=== PATIENT | female | born 1980 | race Caucasian/White ===

== ENCOUNTER 2019-10-10 18:27 | Emergency (ER) | payer SELFPAY ==
[2019-10-10 19:08] VITALS: BP 137/93; PULSE 95; RESP 16; TEMP 36.9; O2SAT 98; BMI 20.7
--- NOTE | 2019-10-10 20:30 | W.ED.EXTPRO ---
HPI - Extremity Problem General: Chief complaint: Extremity Injury, Lower Stated complaint: fall, knee pain Time Seen by Provider: 10/10/19 20:26 History of Present Illness: HPI Narrative: Patient was pulled on T post fell backwards and stood up and had some pain in her left knee with some swelling 20 is gone down now and patient is feeling better Complaint: extremity swelling and joint paint Onset (ago): hour(s) Pain Consistency: intermittent Location: left and knee Severity scale (1-10): 3 Quality: burning Associated symptoms: Deny chest pain, fever(s) or rash Review of Systems Const: Denies: fever, chills or body aches Eyes: Denies: change in vision or blurry vision ENMT: Denies: throat pain or nasal congestion Card: Denies: chest pain or shortness of breath on exertion Resp: Denies: shortness of breath, productive cough or non-productive cough GI: Denies: abdominal pain, nausea or vomiting Musc: Reports: extremity pain and joint pain (Left knee) Skin/Breast: Denies: rash Neuro: Denies: headache Psych: Denies: anxiety or depression Denis/Lymph: Denies: easy bruising PFSH ED PFSH: Statuses (acute, chronic, etc) shown below reflect problem list status as previously entered and may not be historically accurate Social History Smoking and tobacco status: current every day smoker Physical Exam Const: COMMON NORMALS: no apparent distress, average body habitus and oriented x3 HENMT: COMMON NORMALS: normocephalic HEAD & SCALP: normal to inspection and normocephalic FACE & SINUS: normal facial exam Eye: COMMON NORMALS: conjunctivae normal GENERAL EYE: normal appearance of both eyes CONJUNCTIVA: Yes conjunctivae normal Neck/C-Spine: COMMON NORMALS: no JVD Chest: COMMONS NORMALS: inspection of chest normal Resp: COMMON NORMALS: normal respiratory effort and clear to auscultation bilaterally AUSCULTATION: clear to auscultation bilaterally Cardio: COMMON NORMALS: no JVD, regular rate and regular rhythm RATE: regular rate RHYTHM: regular rhythm GI: COMMON NORMALS: normal to inspection, nondistended, normoactive bowel sounds Extremity: COMMON NORMALS: normal to inspection and full ROM LEFT LOWER EXTREMITY: Yes knee joint (Patient has mild swelling to medial joint line is positive for pain for the meniscus medial aspect) EXTREMITY IMAGE (FRONT): 1. Neuro: COMMON NORMALS: oriented x3 Course Vital Signs: Vital signs: Vital Signs Temperature 98.4 F 10/10/19 19:08 Pulse Rate 95 10/10/19 19:08 Respiratory Rate 16 10/10/19 19:08 Blood Pressure 137/93 10/10/19 19:08 Pulse Oximetry 98 10/10/19 19:08 Discharge Plan Discharge Patient Disposition: Home, Self-Care Clinical Impression: Knee sprain Qualifiers: Encounter type: initial encounter Involved ligament of knee: other ligament Laterality: left Qualified Code(s): S83.8X2A - Sprain of other specified parts of left knee, initial encounter Condition: Stable Prescriptions: No Action Synthroid 100 mcg Tablet 100 mcg PO DAILY RF: 0 Lexapro 5 mg 5 mg PO DAILY RF: 0 Discharge Orders: Discharge Order (Routine); Ordered 10/10/19 Ordered By: Ramses Mcgill Referrals: Dori Hook MD [Family Provider] - Discharge Diet: Usual diet Discharge Activity: Increase activity as tolerated Patient Instructions: Knee Pain (ED) Activity Restrictions/Additional Instructions: Follow-up with primary doctor if no significant provement. Consider meniscus sprain tear. Ice activity as tolerated. Can take NSAID for pain relief. Coding Level of Care Code ED Podiatry Teacher for Santy Rodriguez
[2019-10-10 21:07] VITALS: BP 134/71; PULSE 72; RESP 16; O2SAT 97
== END 2019-10-10 20:55 | disposition home or self-care (01) ==
PROVIDERS: Emergency Provider Nurse Practitioner Family; Family Provider Family Medicine
DX: S83.8X2A Sprain of other specified parts of left knee, initial encounter (principal); W19.XXXA Unspecified fall, initial encounter; F17.210 Nicotine dependence, cigarettes, uncomplicated
CPT/HCPCS: 99281

== ENCOUNTER 2019-12-27 17:15 | Emergency (ER) | payer SELFPAY ==
[2019-12-27 17:23] VITALS: BP 131/93; PULSE 71; RESP 18; TEMP 36.7; O2SAT 99; BMI 20.7
--- NOTE | 2019-12-27 17:25 | W.ED.EYEPROB ---
HPI - Eye Problem General: Chief complaint: Eye Problems Stated complaint: left eye pain Time Seen by Provider: 12/27/19 17:25 Source: patient Mode of arrival: ambulatory Limitations: no limitations History of Present Illness: HPI Narrative: Patient comes in today for complaints of injury to the left thigh. Patient was playing with her granddaughter and was struck in the eye by the child's finger. Patient reports injury occurred about 1030 this morning. Patient appears well. Patient appears in moderate pain. chief complaint: eye injury Review of Systems General: Reports: 10 or more systems reviewed and unremarkable except in HPI and below Eyes: Reports: eye discomfort and eye discharge [facility] ED PFSH: Surgical History History of hysterectomy (~2000) due to cancer History of tubal ligation Social History Smoking and tobacco status: current every day smoker Physical Exam Const: COMMON NORMALS: no apparent distress and oriented x3 GENERAL APPEARANCE: cooperative HENMT: COMMON NORMALS: normocephalic, external ears normal, EAC's normal, TM's normal bilaterally and external nose normal HEAD & SCALP: normal to inspection and normocephalic FACE & SINUS: normal facial exam NOSE: external nose normal GENERAL EAR: hearing not grossly impaired EXTERNAL EAR: Yes external ears normal EXTERNAL AUDITORY CANAL: EAC's normal TYMPANIC MEMBRANE: TM's normal bilaterally MOUTH: oral and palatal mucosa normal THROAT: posterior oropharynx normal Eye: COMMON NORMALS: PERRL and EOMs intact bilaterally CORNEA: Yes fluorescein used and other (5mm central abrasion to middle eye) PUPIL: Yes PERRL Neck/C-Spine: COMMON NORMALS: full ROM and no lymphadenopathy Lymph: LYMPHATIC: no lymphedema noted Chest: COMMONS NORMALS: inspection of chest normal and palpation of chest normal Resp: COMMON NORMALS: normal respiratory effort and clear to auscultation bilaterally AUSCULTATION: clear to auscultation bilaterally Cardio: COMMON NORMALS: regular rate and regular rhythm RATE: regular rate RHYTHM: regular rhythm GI: COMMON NORMALS: normal to inspection, nondistended, normoactive bowel sounds and non-tender : COMMON NORMALS: Yes no CVA tenderness BLADDER/KIDNEY EXAM: Yes no CVA tenderness Back/Pelvis: COMMON NORMALS: no CVA tenderness and thoracic and lumbar spine normal to inspection Extremity: COMMON NORMALS: normal to inspection GENERAL: No edema Neuro: COMMON NORMALS: oriented x3, moves all extremities and no focal motor deficits Psych: COMMON NORMALS: mental status grossly normal and cooperative Skin: COMMON NORMALS: no rashes or lesions noted GENERAL SKIN EXAM: no rashes or lesions noted Course Vital Signs: Vital signs: Vital Signs Temperature 98.1 F 12/27/19 17:23 Pulse Rate 76 12/27/19 17:34 Respiratory Rate 16 12/27/19 17:34 Blood Pressure 127/94 12/27/19 17:34 Pulse Oximetry 100 12/27/19 17:34 MDM - Eye Problem MDM Narrative: Medical decision making narrative: Patient comes in today for complaints of injury to the left eye. On exam we note tearing and redness to the eyelids of the left eye. Pupils are equal reactive. No obvious corneal laceration is noted to the left eye. Skin is warm and dry. Differential diagnosis includes corneal abrasion, conjunctivitis, allergic conjunctivitis, blepharitis. Under fluorescein stain note a 5 mm central abrasion to the left eye. Patient had relief with tetracaine. Post procedure antibiotic ophthalmic ointment was used to the eye. Patient was recommended to follow-up with eye career coordinator in no later than 3 days for reevaluation. Patient does have an appointment to see her eye career coordinator tomorrow. Patient reports understanding agreed to plan. Discharge Plan Discharge Patient Disposition: Home, Self-Care Clinical Impression: Corneal abrasion Qualifiers: Encounter type: initial encounter Laterality: left Qualified Code(s): S05.02XA - Injury of conjunctiva and corneal abrasion without foreign body, left eye, initial encounter Condition: Stable Prescriptions: New hydrocodone-acetaminophen 5-325 mg tablet 1 tab PO Q6H PRN (Reason: pain) Qty: 5 RF: 0 No Action cefdinir 300 mg capsule 300 mg PO BID Qty: 14 RF: 0 Ed A-Hist DM 4-10-10 mg tablet 1 tab PO Q6H PRN (Reason: allergy symptoms) Qty: 30 RF: 0 Synthroid 100 mcg Tablet 100 mcg PO DAILY RF: 0 Lexapro 5 mg 10 mg PO DAILY RF: 0 Discharge Orders: Discharge Order (Routine); Ordered 12/27/19 Ordered By: Jose Sales Referrals: Dori Hook MD [Family Provider] - Discharge Diet: Usual diet Discharge Activity: Increase activity as tolerated Patient Instructions: Corneal Abrasion (ED) Activity Restrictions/Additional Instructions: Protect eye from bright light Use antibiotic ointment three times a day for the next 5 days Follow-up with eye career coordinator in three days as needed Return to ER for worsening pain or high fever Coding Level of Care Code ED Furnace Tapper for Chg Fwd Exam Comprehensive
[2019-12-27] MEDS: fluorescein 1 mg Strip EYE-LEFT (17:33)
[2019-12-27] MEDS: neomycin-poly-dex Op oint 3.5 gm 1 APPLIC EYE-LEFT (17:33)
[2019-12-27] MEDS: eye irrigation 30 mL Btl EYE-LEFT (17:33)
[2019-12-27] MEDS: tetracaine 0.5% Op Soln 4 mL Btl 1 DROP EYE-LEFT (17:33)
[2019-12-27 17:34] VITALS: BP 127/94; PULSE 76; RESP 16; O2SAT 100
== END 2019-12-27 17:46 | disposition home or self-care (01) ==
LOC: ER 18:27
PROVIDERS: Emergency Provider Nurse Practitioner Family; Family Provider Family Medicine; PCP Family Medicine
DX: S05.02XA Injury of conjunctiva and corneal abrasion without foreign body, left eye, initial encounter (principal); H57.12 Ocular pain, left eye; W50.0XXA Accidental hit or strike by another person, initial encounter; F17.210 Nicotine dependence, cigarettes, uncomplicated
CPT/HCPCS: 12345; 99281; 99283

== ENCOUNTER 2021-02-28 10:59 | Emergency (ER) | payer SELFPAY ==
[2021-02-28 11:17] VITALS: BP 131/83; PULSE 84; RESP 17; TEMP 37.1; O2SAT 98; BMI 20.7
--- NOTE | 2021-02-28 14:03 | ECG_ITS ---
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 Measurements Intervals [place] Rate: 75 P: 17 SD: 158 QRS: -20 QRSD: 89 T: -4 QT: 357 QTc: 399 Interpretive Statements SINUS RHYTHM NONSPECIFIC T-WAVE ABNORMALITY No previous ECG available for comparison Electronically Signed On 02-28-2021 18:39:44 CDT by Jovan Garcia M.D. [id number]
--- NOTE | 2021-02-28 14:03 | XR_ITS ---
WS: [id number] Portable AP upright chest, 02/28/2021 Clinical Data: dyspnea/cough Comparison: PA and lateral chest, 11/03/2017. Findings: No nodules, masses or effusions are seen. The heart is normal. The pulmonary vascularity is not increased. No pneumonia or pneumothorax is seen. XR/XR chest 1V portable [id number] Impression: Negative chest.
--- NOTE | 2021-02-28 14:19 | W.ED.WEAKNES ---
HPI - Weakness General: Chief complaint: Weakness Stated complaint: H/A, RIGHT ARM PAIN, CP YESTERDAY Time Seen by Provider: 02/28/21 14:14 History of Present Illness: HPI Narrative: Patient complains about headache right arm feels heavier. Said she had some chest pain earlier today although triage she said it was yesterday but now she denies it was yesterday. Is not having chest pain. No shortness of breath no diaphoresis no nausea and vomiting. Complaint: lack of energy Onset (ago): hour(s) Duration: constant Location: RUE Migration: none Severity: mild Severity scale (1-10): 2 Quality: other (Right arm feels heavy) Relieving factors: none Exacerbating factors: none Associated symptoms: Reports chest pain (Did have some yesterday versus this morning.) and headache(s) (Has improved ); Denies chills, easy bruising, fever(s), nausea or vomiting Review of Systems Const: Denies: fever(s), chills or body aches Eyes: Denies: change in vision or blurry vision ENMT: Denies: throat pain or nasal congestion Card: Reports: chest pain (Did have some yesterday versus this morning.); Denies: dyspnea on exertion Resp: Denies: dyspnea, productive cough or non-productive cough GI: Denies: abdominal pain, nausea or vomiting Musc: Denies: extremity pain Skin/Breast: Denies: rash Neuro: Reports: headache(s) (Has improved ) and weakness in extremities (Feels heavy week) Psych: Denies: anxiety or depression Denis/Lymph: Denies: easy bruising PFSH ED PFSH: Surgical History History of hysterectomy (~2000) due to cancer History of tubal ligation Family History Other Heart disease Social History Smoking and tobacco status: current every day smoker Physical Exam Const: COMMON NORMALS: no acute distress, average body habitus and patient oriented x3 HENMT: COMMON NORMALS: normocephalic HEAD & SCALP: normal to inspection and normocephalic FACE & SINUS: normal facial exam Eye: COMMON NORMALS: conjunctivae normal GENERAL EYE: appearance normal, both eyes and all related structures CONJUNCTIVA: Yes conjunctivae normal Neck/C-Spine: COMMON NORMALS: no JVD Chest: COMMONS NORMALS: normal inspection of the chest Resp: COMMON NORMALS: normal respiratory effort and clear to auscultation bilaterally AUSCULTATION: clear to auscultation bilaterally Cardio: COMMON NORMALS: no JVD, regular rate and regular rhythm RATE: regular rate RHYTHM: regular rhythm GI: COMMON NORMALS: Normal to inspection, nondistended, normoactive bowel sounds present Extremity: COMMON NORMALS: normal to inspection and full ROM Neuro: COMMON NORMALS: patient oriented x3, CN's II-XII intact bilaterally, moves all extremities, no focal motor deficits and no sensory deficits noted Course Vital Signs: Vital signs: Vital Signs Temperature 98.7 F 02/28/21 11:17 Pulse Rate 71 02/28/21 14:49 Respiratory Rate 16 02/28/21 14:49 Blood Pressure 133/80 02/28/21 14:49 Pulse Oximetry 97 02/28/21 14:49 MDM - Weakness MDM Narrative: Medical decision making narrative: Patient has arm heaviness almost feeling kind of numb. Patient woke up with this she said she had had chest pain yesterday but then she said here in the visit that it was this morning but she is not had any since then. She had a just feels heavy to move her arm with the fingertips tingling at times. Labs x-ray EKG negative we will treat for cervical radiculopathy type symptom patient is a follow-up with primary care provider here in the next few days. Lab Data: Labs: Lab Results 02/28/21 02/28/21 02/28/21 Range/Units 14:44 14:44 14:44 WBC 9.8 (4.0-10.0) 10^3/ uL RBC 3.79 L (4.1-5.3) 10^6/u L Hgb 12.9 (11.5-15.3) g/dL Hct 38.7 (37.0-47.0) % MCV 102.1 H (81-99) fL MCH 34.0 (28.0-34.0) pg MCHC 33.3 (30.0-36.0) g/dL RDW 14.1 (12.1-15.1) % Plt Count 305 (130-400) 10^3/c mm MPV 9.6 (7.4-10.4) fL Neut % (Auto) 59.6 % Lymph % (Auto) 36.0 % [place] % (Auto) 2.8 % Eos % (Auto) 0.6 % Baso % (Auto) 0.8 % Neut # (Auto) 5.84 (1.8-7.7) 10^3/u L Lymph # (Auto) 3.5 (0.8-4.8) 10^3/u L [place] # (Auto) 0.3 (0.2-0.9) 10^3/u L Eos # (Auto) 0.1 (0.0-0.8) 10^3/u L Baso # (Auto) 0.1 (0.0-0.1) 10^3/u L Nucleated RBC % (a uto) 0 % Nucleated RBCs # 0.0 /100WBC Sodium 138 (136-145) mmol/L Potassium 4.2 (3.5-5.1) mmol/L Chloride 105 (98-107) mmol/L Carbon Dioxide 20 L (22-29) mmol/L Anion Gap 17.2 (5-19) BUN 5 L (6-20) mg/dL Creatinine 0.5 (0.5-0.9) mg/dL GFR Calculation 135.3 H (90-130) mL/min Glucose 82 (65-115) mg/dL Calculated Osmolal ity 282 L (285-295) mOsm/k g Calcium 8.3 L (8.5-10.5) mg/dL Total Bilirubin 0.2 (0.15-1.2) mg/dL AST 12 (0-32) U/L ALT < 5 (0-33) U/L Alkaline Phosphata se 57 (35-105) IU/L Troponin T Gen 5 n g/L 6 (0-10) ng/L Total Protein 7.3 (6.6-8.7) g/dL Albumin 4.3 (3.5-5.2) g/dL Globulin 3.0 (1.3-4.6) g/dL EKG Data^: EKG 1: EKG interpretation date: 02/28/21 EKG interpretation time: 14:40 Computer generated interpretation: Ventricular rate 75 bpm NE interval 158 ms QRS duration 89 ms QT is 350 7 ms sinus rhythm Discharge Plan Discharge Patient Disposition: Home Clinical Impression: Arm heaviness Condition: Stable Prescriptions: New prednisone 20 mg tablet 20 mg PO DAILY Qty: 7 RF: 0 No Action Benadryl 50 mg Capsule 50 mg PO Q6H PRN (Reason: Allergy Symptoms) RF: 0 ibuprofen 200 mg Tablet 200 - 400 mg PO Q6H PRN (Reason: Pain) RF: 0 Discharge Orders: Discharge ED (Routine); Ordered 02/28/21 Ordered By: Vinod Mcgill Referrals: Dori Hook MD [Primary Care Provider] - Discharge Diet: Usual diet Discharge Activity: Resume usual activity Patient Instructions: Cervical Radiculopathy (ED) Activity Restrictions/Additional Instructions: Follow-up with medical provider as directed. Take medications as prescribed. Return to the ER or your medical provider if condition worsens. Please read and understand discharge instructions. If any questions ask please. Apply moist heat to the neck. See about visit with a chiropractor. Follow-up your family medical provider if no significant improvement. Coding Level of Care Code ED Chief Substation Operator for Gamalg Fwd Exam Comprehensive
[2021-02-28 14:49] VITALS: BP 133/80; PULSE 71; RESP 16; O2SAT 97
[2021-02-28 14:54] LABS: Basophils # 0.1 10^3/uL (0.0-0.1); Basophils % 0.8 %; Eosinophils # 0.1 10^3/uL (0.0-0.8); Eosinophils % 0.6 %; Hematocrit 38.7 % (37.0-47.0); Hemoglobin 12.9 g/dL (11.5-15.3); Lymphocytes # 3.5 10^3/uL (0.8-4.8); Mean Corpuscular HGB Conc 33.3 g/dL (30.0-36.0); Mean Corpuscular Volume 102.1 fL (81-99); Mean Platelet Volume 9.6 fL (7.4-10.4); Monocytes # 0.3 10^3/uL (0.2-0.9); Monocytes % 2.8 %; Neutrophils # 5.84 10^3/uL (1.8-7.7); Neutrophils % 59.6 %; Nucleated Red Blood Cells % 0 %; Platelet Count 305 10^3/cmm (130-400); Red Blood Count 3.79 10^6/uL (4.1-5.3); Red Cell Distribution Width 14.1 % (12.1-15.1); White Blood Count 9.8 10^3/uL (4.0-10.0)
[2021-02-28 15:29] LABS: Alanine Aminotransferase < 5 U/L (0-33); Albumin Level 4.3 g/dL (3.5-5.2); Alkaline Phosphatase 57 IU/L (35-105); Blood Urea Nitrogen 5 mg/dL (6-20); Calcium 8.3 mg/dL (8.5-10.5); Carbon Dioxide 20 mmol/L (22-29); Chloride 105 mmol/L (98-107); Glomerular Filtration Rate 135.3 mL/min (90-130); Glucose 82 mg/dL (65-115); Osmolality Calculated 282 mOsm/kg (285-295); Sodium 138 mmol/L (136-145); Total Bilirubin 0.2 mg/dL (0.15-1.2); Total Protein 7.3 g/dL (6.6-8.7)
[2021-02-28 15:30] LABS: Anion Gap 17.2 (5-19); Potassium 4.2 mmol/L (3.5-5.1)
[2021-02-28 15:31] LABS: Aspartate Amino Transferase 12 U/L (0-32)
[2021-02-28 15:38] LABS: Troponin T (5th) Once 6 ng/L (0-10)
[2021-02-28 15:52] LABS: Add Urine Microscopic? NO; Charge for UA Resulting for Rev
[2021-02-28 16:05] VITALS: RESP 18
[2021-02-28 16:19] LABS: Bilirubin Urine Neg (Negative); Blood Urine Neg (Negative); Glucose Urine UA Norm (Normal); Ketones Urine Negative (Negative); Leukocyte Esterase Urine Negative (Negative); Nitrate Urine Negative (Negative); Protein Urine Neg (Negative); Specific Gravity, Urine 1.005 (1.005-1.030); Urine Appearance Clear (CLEAR); Urine Color Yellow (Yellow); Urobilinogen Urine Norm (Negative); pH Urine 7 (5-7)
== END 2021-02-28 16:06 | disposition home or self-care (01) ==
PROVIDERS: Family Medicine; Emergency Provider Nurse Practitioner Family; PCP Family Medicine
DX: R53.1 Weakness (principal); Z85.9 Personal history of malignant neoplasm, unspecified; F17.210 Nicotine dependence, cigarettes, uncomplicated
CPT/HCPCS: 71045; 80053; 81003; 84484; 85025; 93005; 99283

== ENCOUNTER 2022-06-12 11:43 | Emergency (ER) | payer SELFPAY ==
[2022-06-12] VITALS (7 sets, daily range): BP systolic 118–143; BP diastolic 80–101; PULSE 61–87; RESP 15–18; TEMP 36.9; O2SAT 95–99
--- NOTE | 2022-06-12 11:53 | ECG_ITS ---
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 Measurements Intervals [place] Rate: 87 P: 69 NM: 152 QRS: 120 QRSD: 88 T: -73 QT: 352 QTc: 425 Interpretive Statements SINUS RHYTHM POSSIBLE RIGHT VENTRICULAR HYPERTROPHY [SOME/ALL OF: PROMINENT R IN V1, LATE TRANSITION, RAD, CARLA, SSS] ST DEVIATION AND MODERATE T-WAVE ABNORMALITY, CONSIDER ANTEROLATERAL ISCHEMIA [-0.1+ mV T-WAVE IN V3-V6] ST DEVIATION AND MODERATE T-WAVE ABNORMALITY, CONSIDER INFERIOR ISCHEMIA [-0.1+ mV T-WAVE IN II/aVF] Compared to ECG 02/28/2021 14:37:08 Atrial abnormality now present Possible ischemia now present T-wave abnormality still present Electronically Signed On 06-12-2022 16:21:33 CDT by Jovan Garcia M.D. [id number]
--- NOTE | 2022-06-12 12:18 | W.ED.CHESTPA ---
HPI - Chest Pain General: Chief Complaint: Chest Pain Stated Complaint: chest pain Time Seen by Provider: 06/12/22 12:08 Source: patient Mode of arrival: ambulatory Limitations: no limitations History of Present Illness: 42-year-old female states that she had COVID 2 weeks ago states that since then she has been having increasing chest pains states pains been sharp throughout her whole chest states they have been constant for 2 weeks but have worsened over the last week states her pain is currently a 7 out of 10 she denies any worsening improving factors denies any cough recently denies any vomiting or diarrhea Associated symptoms: Deny abdominal pain, dyspnea, fever(s), nausea or vomiting Review of Systems Const: Denies: fever(s), chills, body aches or change in appetite Eyes: Denies: blurry vision or eye discomfort ENMT: Denies: throat pain or dental pain Card: Reports: chest pain Resp: Denies: dyspnea GI: Denies: abdominal pain, nausea, vomiting or diarrhea : Denies: dysuria Musc: Denies: neck pain or back pain Skin/Breast: Denies: rash Neuro: Denies: headache(s) Psych: Denies: depression Denis/Lymph: Denies: easy bruising All/Imm: Denies: urticaria PFSH ED PFSH: Surgical History History of hysterectomy (~2000) due to cancer History of tubal ligation Family History Other Heart disease Social History Smoking and tobacco status: current every day smoker Physical Exam Const: COMMON NORMALS: no acute distress, patient oriented x3 and healthy appearing HENMT: COMMON NORMALS: normocephalic and atraumatic HEAD & SCALP: normocephalic and atraumatic Eye: COMMON NORMALS: Equal, round and reactive pupils present and EOMs intact bilaterally PUPIL: Yes Equal, round and reactive pupils present Neck/C-Spine: COMMON NORMALS: full ROM and supple Chest: COMMONS NORMALS: normal inspection of the chest and normal palpation of entire chest wall Resp: COMMON NORMALS: normal respiratory effort, No retractions, No use of accessory muscles and clear to auscultation bilaterally AUSCULTATION: clear to auscultation bilaterally Cardio: COMMON NORMALS: regular rate, regular rhythm and No murmurs present (Cardio) RATE: regular rate RHYTHM: regular rhythm GI: COMMON NORMALS: Normal to inspection, nondistended, normoactive bowel sounds present, Soft to palpation, non-tender and no masses PALPATION: Yes Soft to palpation Extremity: COMMON NORMALS: normal to inspection and full ROM Neuro: COMMON NORMALS: patient oriented x3, moves all extremities and no focal motor deficits Psych: COMMON NORMALS: mental status grossly normal, Normal thought process present and cooperative THOUGHT PROCESS: Normal thought process present Skin: COMMON NORMALS: no rashes or lesions noted and no wounds GENERAL SKIN EXAM: no rashes or lesions noted Course Vital Signs: Vital signs: Vital Signs Temperature 98.5 F 06/12/22 11:49 Pulse Rate 81 06/12/22 12:46 Respiratory Rate 16 06/12/22 12:46 Blood Pressure 118/86 06/12/22 12:46 Pulse Oximetry 99 06/12/22 12:46 Oxygen Delivery Me thod 06/12/22 12:46 MDM - Chest Pain Medical Decision Making Patient presents here with chest pains atypical in nature been going on for weeks. Her initial repeat troponin here negative her D-dimer is negative as well she has no signs of acute coronary syndrome we will get her cardiology follow-up for her pain she is stable for discharge. Lab Data : 06/12/22 12:30 06/12/22 12:30 Laboratory Results WBC 8.3 10^3/uL (4.0-10.0) 06/12/22 12:30 RBC 4.01 10^6/uL (4.1-5.3) L 06/12/22 12:30 Hgb 13.3 g/dL (11.5-15.3) 06/12/22 12:30 Hct 40.3 % (37.0-47.0) 06/12/22 12:30 MCV 100.5 fl (81-99) H 06/12/22 12:30 MCH 33.2 pg (28.0-34.0) 06/12/22 12:30 MCHC 33.0 g/dL (30.0-36.0) 06/12/22 12:30 RDW 13.2 % (12.1-15.1) 06/12/22 12:30 Plt Count 403 10^3/cmm (130-400) H 06/12/22 12:30 MPV 9.6 fL (7.4-10.4) 06/12/22 12:30 Neut % (Auto) 55.2 % 06/12/22 12:30 Lymph % (Auto) 38.1 % 06/12/22 12:30 [place] % (Auto) 4.8 % 06/12/22 12:30 Eos % (Auto) 1.0 % 06/12/22 12:30 Baso % (Auto) 0.5 % 06/12/22 12:30 Neut # (Auto) 4.61 10^3/uL (1.8-7.7) 06/12/22 12: Lymph # (Auto) 3.2 10^3/uL (0.8-4.8) 06/12/22 12:30 [place] # (Auto) 0.4 10^3/uL (0.2-0.9) 06/12/22 12:30 Eos # (Auto) 0.1 10^3/uL (0.0-0.8) 06/12/22 12:30 Baso # (Auto) 0.0 10^3/uL (0.0-0.1) 06/12/22 12:30 Nucleated RBC % (auto) 0 % 06/12/22 12: Nucleated RBCs # 0.0 /100WBC 06/12/22 12:30 PT 12.90 SECONDS (12.1-14.9) 06/12/22 12:30 INR 0.94 (0.8-1.2) 06/12/22 12:30 D-Dimer 0.31 ug/mIFEU (0-0.59) 06/12/22 12:30 Sodium 138 mmol/L (136-145) 06/12/22 12:30 Potassium 3.6 mmol/L (3.5-5.1) 06/12/22 12:30 Chloride 101 mmol/L (98-107) 06/12/22 12:30 Carbon Dioxide 22 mmol/L (22-29) 06/12/22 12:30 Anion Gap 18.6 (5-19) 06/12/22 12:30 BUN 6 mg/dL (6-20) 06/12/22 12:30 Creatinine 0.5 mg/dL (0.5-0.9) 06/12/22 12:30 GFR Calculation 134.0 mL/min (90-130) H 06/12/22 12:30 Glucose 83 mg/dL (65-115) 06/12/22 12:30 Calculated Osmolality 283 mOsm/kg (285-295) L 06/12/22 12:30 Calcium 9.0 mg/dL (8.5-10.5) 06/12/22 12:30 Total Bilirubin 0.4 mg/dL (0.15-1.2) 06/12/22 12:30 AST 15 U/L (0-32) 06/12/22 12:30 ALT < 5 U/L (0-33) 06/12/22 12:30 Alkaline Phosphatase 67 U/L (35-105) 06/12/22 12:30 Troponin T Baseline 6 ng/L (0-10) 06/12/22 12:30 Troponin T 120 Minute 6.00 ng/L (0-10) 06/12/22 13:49 Total Protein 7.2 g/dL (6.6-8.7) 06/12/22 12:30 Albumin 4.5 g/dL (3.5-5.2) 06/12/22 12:30 Globulin 2.7 g/dL (1.3-4.6) 06/12/22 12:30 EKG Data EKG 1: I personally reviewed and interpreted this EKG as follows: EKG interpretation date: 06/12/22 EKG interpretation time: 11:53 Interpretation: nsr hr 87 st depression noted no elevation qrs 88 qtc 397 EKG 2: I personally reviewed and interpreted this EKG as follows: EKG interpretation date: 06/12/22 EKG interpretation time: 13:51 Interpretation: nsr hr [address] or t wave abnormalities qrs 96 qtc 397 Discharge Plan Discharge Patient Disposition: Home Clinical Impression: Chest pain Condition: Stable Prescriptions: No Action diphenhydramine HCl [Benadryl] 50 mg Capsule 50 mg PO Q6H PRN (Reason: Allergy Symptoms) ibuprofen 200 mg Tablet 200 - 400 mg PO Q6H PRN (Reason: Pain) Tylenol 325 mg Capsule 325 mg PO QID PRN (Reason: Pain) Discharge Orders: Discharge ED (Routine); Ordered 06/12/22 Ordered By: Anthony Duran Referrals: Miladis Lloyd MD [Physician] - 1-3 days Dori Hook MD [Primary Care Provider] - Discharge Diet: Advance as tolerated Discharge Activity: Resume usual activity Patient Instructions: Chest Pain (ED) Coding Level of Care Code ED Ethylbenzene Converter Helper for Chg Fwd Exam Comprehensive
[2022-06-12] MEDS: aspirin 81 mg Chew Tablet 324 MG PO (12:41)
[2022-06-12] MEDS: HYDROmorphone 1 mg/mL INJ 1 mL 0.5 MG IVP (12:41)
[2022-06-12] MEDS: ondansetron 2 mg/ML SDV 2 mL 4 MG IVP (12:41)
[2022-06-12 13:18] LABS: Basophils % 0.5 %; Eosinophils # 0.1 10^3/uL (0.0-0.8); Hematocrit 40.3 % (37.0-47.0); Hemoglobin 13.3 g/dL (11.5-15.3); Lymphocytes # 3.2 10^3/uL (0.8-4.8); Lymphocytes % 38.1 %; Mean Corpuscular Hemoglobin 33.2 pg (28.0-34.0); Mean Corpuscular Volume 100.5 fl (81-99); Mean Platelet Volume 9.6 fL (7.4-10.4); Monocytes # 0.4 10^3/uL (0.2-0.9); Monocytes % 4.8 %; Neutrophils # 4.61 10^3/uL (1.8-7.7); Neutrophils % 55.2 %; Nucleated Red Blood Cells % 0 %; Platelet Count 403 10^3/cmm (130-400); Red Blood Count 4.01 10^6/uL (4.1-5.3); Red Cell Distribution Width 13.2 % (12.1-15.1); White Blood Count 8.3 10^3/uL (4.0-10.0)
[2022-06-12 13:19] LABS: INR 0.94 (0.8-1.2)
[2022-06-12 13:21] LABS: D Dimer 0.31 ug/mIFEU (0-0.59)
[2022-06-12 13:24] LABS: Troponin(5th) Baseline 6 ng/L (0-10)
[2022-06-12 13:38] LABS: Alanine Aminotransferase < 5 U/L (0-33); Albumin Level 4.5 g/dL (3.5-5.2); Alkaline Phosphatase 67 U/L (35-105); Anion Gap 18.6 (5-19); Aspartate Amino Transferase 15 U/L (0-32); Blood Urea Nitrogen 6 mg/dL (6-20); Carbon Dioxide 22 mmol/L (22-29); Chloride 101 mmol/L (98-107); Globulin 2.7 g/dL (1.3-4.6); Glucose 83 mg/dL (65-115); Osmolality Calculated 283 mOsm/kg (285-295); Potassium 3.6 mmol/L (3.5-5.1); Sodium 138 mmol/L (136-145); Total Bilirubin 0.4 mg/dL (0.15-1.2); Total Protein 7.2 g/dL (6.6-8.7)
--- NOTE | 2022-06-12 13:51 | ECG_ITS ---
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 Measurements Intervals [place] Rate: 63 P: 59 [place]: 162 QRS: 95 QRSD: 96 T: -22 QT: 390 QTc: 400 Interpretive Statements SINUS RHYTHM BORDERLINE RIGHT AXIS DEVIATION [QRS AXIS > 90] ST DEVIATION AND MODERATE T-WAVE ABNORMALITY, CONSIDER ANTERIOR ISCHEMIA [-0.1+ mV T-WAVE IN V3/V4] Compared to ECG 06/12/2022 11:53:37 Atrial abnormality no longer present T-wave abnormality still present Possible ischemia still present Electronically Signed On 06-12-2022 16:22:46 CDT by Jovan Garcia M.D. [email or web address]. [email or web address] memorial hospitalMaples ESM Technologiesblanchard valley [facility].Sevcon/store/OM/[id number]
--- NOTE | 2022-06-12 14:33 | PC.NURSE ---
PT PLACED ON CONTINUOS NIBP, SPO2, AND CM
[2022-06-12 15:34] LABS: Troponin 5 2HR Delta 0 ABS# (0-10)
[2022-06-12] MEDS: HYDROcodone-acetaminophen 5-325 mg Tablet 1 TAB PO (15:37)
--- NOTE | 2022-06-13 10:09 | DCPLANNER ---
Addendum entered by Bertha Sanchez 09/17/22 11:53: Patient had a follow up appointment scheduled with heart care - patient did attend appointment Addendum entered by Bertha Sanchez 06/13/22 15:01: Patient has a follow up appointment scheduled for , August 28, 2022 at 10:[address] Lloyd at [facility]. Clinic will call patient with appointment information. Original Note: onsite case manager had message to schedule a follow up appointment for patient with cardiology. onsite case manager sent patients information to the front office staff at [facility]. Patients information will be printed and reviewed. Clinic will call patient with appointment information.
== END 2022-06-12 15:20 | disposition home or self-care (01) ==
PROVIDERS: Emergency Provider Emergency Medicine; PCP Family Medicine
DX: R07.9 Chest pain, unspecified (principal)
CPT/HCPCS: 36415; 80053; 84484; 85025; 85378; 85610; 93005; 96374; 96375; 99285; J1170; J2405

== ENCOUNTER 2022-06-25 21:52 | Emergency (ER) | payer SELFPAY ==
[2022-06-25 22:06] VITALS: BMI 18.8
[2022-06-25 22:13] VITALS: BP 136/80; PULSE 90; RESP 15; TEMP 36.7; O2SAT 99
--- NOTE | 2022-06-25 22:18 | ECG_ITS ---
[facility] Test Date: 2022-06-25 Pat Name: Celina Reagan Department: Room: Gender: Female Wolf Hunter: : 1980 Requested By: Anthony Duran Order Number: [id number] Lenard MD: Jovan Garcia M.D. Measurements Intervals [place] Rate: 93 P: 57 [place]: 149 QRS: 93 QRSD: 79 T: -48 QT: 310 QTc: 387 Interpretive Statements SINUS RHYTHM BORDERLINE RIGHT AXIS DEVIATION [QRS AXIS > 90] SEPTAL MYOCARDIAL INFARCTION , PROBABLY OLD [40+ ms Q WAVE IN V1/V2] MODERATE T-WAVE ABNORMALITY, CONSIDER ANTEROLATERAL ISCHEMIA [-0.1+ mV T-WAVE IN V3-V6] MODERATE T-WAVE ABNORMALITY, CONSIDER INFERIOR ISCHEMIA [-0.1+ mV T-WAVE IN II/aVF] Compared to ECG 06/12/2022 13:51:48 Myocardial infarct finding now present T-wave abnormality still present Possible ischemia still present Electronically Signed On 06-26-2022 8:54:38 CDT by Jovan Garcia M.D. [email or web address].Z[employer] Imagingei Technologieszanesville city hospital.Aprovecha.com/store/[id number] justyna
--- NOTE | 2022-06-25 22:21 | XRR_ITS ---
PROCEDURE INFORMATION: Exam: XR Chest Exam date and time: 06/25/2022 10:29 PM Age: 42 years old Clinical indication: Chest pressure and chest wall pain; Additional info: Cp TECHNIQUE: Imaging protocol: Radiologic exam of the chest. Views: 1 view. COMPARISON: CR XR chest 1V portable [id number] 02/28/2021 2:22 PM FINDINGS: Lungs: No consolidation. Pleural spaces: No pleural effusion. No pneumothorax. Heart/Mediastinum: No cardiomegaly. Bones/joints: Unremarkable. XR/XR chest 1V portable [id number] IMPRESSION: 1. No acute abnormality demonstrated. 2. There is no interval change from the prior examination.
--- NOTE | 2022-06-25 22:30 | W.ED.CHESTPA ---
HPI - Chest Pain General: Chief Complaint: Chest Pain Stated Complaint: cp Time Seen by Provider: 06/25/22 22:26 Source: patient Mode of arrival: ambulatory Limitations: no limitations History of Present Illness: 42-year-old female states she been having intermittent chest pain over the last 3 weeks patient's been seen here along with [facility] had normal work-ups. States that today started having pain for 5 hours ago states that sharp pain in the center of her chest also having a slight headache. She denies any shortness of breath denies any nausea denies any diaphoresis. States her pain is currently a 5 out of 10. She denies any worsening improving factors. Associated symptoms: Deny abdominal pain, dyspnea, fever(s), nausea or vomiting Review of Systems Const: Denies: fever(s), chills, body aches or change in appetite Eyes: Denies: blurry vision or eye discomfort ENMT: Denies: throat pain or dental pain Card: Reports: chest pain Resp: Denies: dyspnea GI: Denies: abdominal pain, nausea, vomiting or diarrhea : Denies: dysuria Musc: Denies: neck pain or back pain Skin/Breast: Denies: rash Neuro: Denies: headache(s) Psych: Denies: depression Denis/Lymph: Denies: easy bruising All/Imm: Denies: urticaria PFSH ED PFSH: Surgical History History of hysterectomy (~2000) due to cancer History of tubal ligation Family History Other Heart disease Social History Smoking and tobacco status: current every day smoker Course Vital Signs: Vital signs: Vital Signs Temperature 98.0 F 06/25/22 22:13 Pulse Rate 68 06/25/22 22:43 Respiratory Rate 16 06/25/22 22:43 Blood Pressure 104/67 06/25/22 22:43 Pulse Oximetry 98 06/25/22 22:43 Oxygen Delivery Me thod 06/25/22 22:13 MDM - Chest Pain Medical Decision Making Patient presents here with chest pain is atypical in nature she is well-appearing here troponins are normal we will get her follow-up with cardiology she is to return if worsening she understands agrees to plan. Lab Data : 06/25/22 22:42 06/25/22 22:42 Radiology Impressions Chest X-Ray 06/25/22 22: IMPRESSION: 1. No acute abnormality demonstrated. 2. There is no interval change from the prior examination. Laboratory Results WBC 12.5 10^3/uL (4.0-10.0) H 06/25/22 22:42 RBC 3.71 10^6/uL (4.1-5.3) L 06/25/22 22:42 Hgb 12.5 g/dL (11.5-15.3) 06/25/22 22:42 Hct 37.9 % (37.0-47.0) 06/25/22 22:42 MCV 102.2 fl (81-99) H 06/25/22 22:42 MCH 33.7 pg (28.0-34.0) 06/25/22 22: MCHC 33.0 g/dL (30.0-36.0) 06/25/22 22:42 RDW 13.5 % (12.1-15.1) 06/25/22 22:42 Plt Count 414 10^3/cmm (130-400) H 06/25/22 22:42 MPV 9.0 fL (7.4-10.4) 06/25/22 22:42 Neut % (Auto) 67.2 % 06/25/22 22:42 Lymph % (Auto) 26.3 % 06/25/22 22:42 [place] % (Auto) 4.9 % 06/25/22 22:42 Eos % (Auto) 0.7 % 06/25/22 22:42 Baso % (Auto) 0.6 % 06/25/22 22:42 Neut # (Auto) 8.35 10^3/uL (1.8-7.7) H 06/25/22 22:42 Lymph # (Auto) 3.3 10^3/uL (0.8-4.8) 06/25/22 22:42 [place] # (Auto) 0.6 10^3/uL (0.2-0.9) 06/25/22 22:42 Eos # (Auto) 0.1 10^3/uL (0.0-0.8) 06/25/22 22:42 Baso # (Auto) 0.1 10^3/uL (0.0-0.1) 06/25/22 22:42 Nucleated RBC % (auto) 0 % 06/25/22 22: Nucleated RBCs # 0.0 /100WBC 06/25/22 22:42 PT 12.20 SECONDS (12.1-14.9) 06/25/22 22:42 INR 0.88 (0.8-1.2) 06/25/22 22:42 Sodium 140 mmol/L (136-145) 06/25/22 22:42 Potassium 3.9 mmol/L (3.5-5.1) 06/25/22 22:42 Chloride 103 mmol/L (98-107) 06/25/22 22:42 Carbon Dioxide 25 mmol/L (22-29) 06/25/22 22:42 Anion Gap 15.9 (5-19) 06/25/22 22:42 BUN 6 mg/dL (6-20) 06/25/22 22:42 Creatinine 0.5 mg/dL (0.5-0.9) 06/25/22 22:42 GFR Calculation 134.0 mL/min (90-130) H 06/25/22 22:42 Glucose 98 mg/dL (65-115) 06/25/22 22:42 Calculated Osmolality 288 mOsm/kg (285-295) 06/25/22 22:42 Calcium 9.5 mg/dL (8.5-10.5) 06/25/22 22:42 Total Bilirubin 0.3 mg/dL (0.15-1.2) 06/25/22 22:42 AST 13 U/L (0-32) 06/25/22 22:42 ALT 6 U/L (0-33) 06/25/22 22:42 Alkaline Phosphatase 74 U/L (35-105) 06/25/22 22:42 Troponin T Baseline 6 ng/L (0-10) 06/25/22 22:42 Troponin T 120 Minute 6.00 ng/L (0-10) 06/26/22 00:22 Delta Troponin T 0 ABS# (0-10) 06/26/22 00:22 Total Protein 7.6 g/dL (6.6-8.7) 06/25/22 22:42 Albumin 4.7 g/dL (3.5-5.2) 06/25/22 22:42 Globulin 2.9 g/dL (1.3-4.6) 06/25/22 22:42 EKG Data EKG 1: I personally reviewed and interpreted this EKG as follows: EKG interpretation date: 06/25/22 EKG interpretation time: 22:28 Interpretation: nsr hr [address] or t wave abnormalities qrs 96 qtc 393 Discharge Plan Discharge Patient Disposition: Home Clinical Impression: Chest pain Condition: Stable Prescriptions: No Action diphenhydramine HCl [Benadryl] 50 mg Capsule 50 mg PO Q6H PRN (Reason: Allergy Symptoms) ibuprofen 200 mg Tablet 200 - 400 mg PO Q6H PRN (Reason: Pain) Tylenol 325 mg Capsule 325 mg PO QID PRN (Reason: Pain) Discharge Orders: Discharge ED (Routine); Ordered 06/26/22 Ordered By: Anthony Duran Referrals: Jerome Fajardo MD [Physician] - 1-3 days Dori Hook MD [Primary Care Provider] - Discharge Diet: Advance as tolerated Discharge Activity: Resume usual activity Patient Instructions: Chest Pain (ED) Coding Level of Care Code ED Allergist/Pediatric Pulmonologist for Santy Rodriguez
[2022-06-25 22:43] VITALS: BP 104/67; PULSE 68; RESP 16; O2SAT 98
[2022-06-25] MEDS: ondansetron 2 mg/ML SDV 2 mL 4 MG IVP (22:44)
[2022-06-25] MEDS: HYDROmorphone 1 mg/mL INJ 1 mL 0.5 MG IVP (22:44)
[2022-06-25 22:45] LABS: Basophils # 0.1 10^3/uL (0.0-0.1); Basophils % 0.6 %; Eosinophils # 0.1 10^3/uL (0.0-0.8); Eosinophils % 0.7 %; Hematocrit 37.9 % (37.0-47.0); Hemoglobin 12.5 g/dL (11.5-15.3); Lymphocytes # 3.3 10^3/uL (0.8-4.8); Lymphocytes % 26.3 %; Mean Corpuscular Hemoglobin 33.7 pg (28.0-34.0); Mean Corpuscular Volume 102.2 fl (81-99); Monocytes # 0.6 10^3/uL (0.2-0.9); Monocytes % 4.9 %; Neutrophils # 8.35 10^3/uL (1.8-7.7); Neutrophils % 67.2 %; Nucleated Red Blood Cells % 0 %; Platelet Count 414 10^3/cmm (130-400); Red Blood Count 3.71 10^6/uL (4.1-5.3); Red Cell Distribution Width 13.5 % (12.1-15.1); White Blood Count 12.5 10^3/uL (4.0-10.0)
[2022-06-25 23:04] LABS: Alanine Aminotransferase 6 U/L (0-33); Albumin Level 4.7 g/dL (3.5-5.2); Alkaline Phosphatase 74 U/L (35-105); Anion Gap 15.9 (5-19); Aspartate Amino Transferase 13 U/L (0-32); Blood Urea Nitrogen 6 mg/dL (6-20); Calcium 9.5 mg/dL (8.5-10.5); Carbon Dioxide 25 mmol/L (22-29); Chloride 103 mmol/L (98-107); Globulin 2.9 g/dL (1.3-4.6); Glucose 98 mg/dL (65-115); INR 0.88 (0.8-1.2); Osmolality Calculated 288 mOsm/kg (285-295); Potassium 3.9 mmol/L (3.5-5.1); Sodium 140 mmol/L (136-145); Total Bilirubin 0.3 mg/dL (0.15-1.2); Total Protein 7.6 g/dL (6.6-8.7)
[2022-06-25 23:05] LABS: Troponin(5th) Baseline 6 ng/L (0-10)
--- NOTE | 2022-06-26 00:24 | ECG_ITS ---
[facility] Test Date: 2022-06-26 Pat Name: Celina Reagan Department: Room: Gender: Female Reimbursement Coordinator: : 1980 Requested By: Anthony Duran Order Number: [id number] Lenard MD: Jerome Fajardo M.D. Measurements Intervals [place] Rate: 67 P: 42 [place]: 165 QRS: 79 QRSD: 93 T: 55 QT: 388 QTc: 410 Interpretive Statements SINUS RHYTHM LOW QRS VOLTAGE IN PRECORDIAL LEADS [QRS DEFLECTION < 1.0 mV IN CHEST LEADS] NONSPECIFIC T-WAVE ABNORMALITY Compared to ECG 06/25/2022 22:18:35 Low QRS voltage now present Myocardial infarct finding no longer present Possible ischemia no longer present T-wave abnormality still present Electronically Signed On 06-26-2022 20:40:31 CDT by Jerome Fajardo M.D. [email or web address].[facility].Lecturio/store/[id number]
[2022-06-26 01:12] LABS: Troponin 5 2HR Delta 0 ABS# (0-10)
[2022-06-26 01:45] VITALS: BP 105/62; PULSE 79; RESP 14; O2SAT 99
--- NOTE | 2022-06-26 09:15 | DCPLANNER ---
Addendum entered by Bertha Sanchez 09/26/22 14:06: Patient had a follow up appointment scheduled with heart care - patient did attend appointment. Addendum entered by Bertha Sanchez 06/26/22 11:26: Patient has a follow up appointment scheduled for , August 28, 2022 at 10:[address] Lloyd at [facility]. Clinic will call patient with appointment information. Original Note: manager quality improvement had message to schedule a follow up appointment for patient with cardiology. manager quality improvement sent patients information to the front office staff at [facility]. Patients information will be reviewed. Clinic will call patient with appointment information.
--- NOTE | 2022-07-12 02:12 | W.ED.CHESTPA ---
HPI - Chest Pain General: Chief Complaint: Chest Pain Stated Complaint: cp Time Seen by Provider: 06/25/22 22:26 Source: patient Mode of arrival: ambulatory Limitations: no limitations History of Present Illness: . PFSH ED PFSH: Surgical History History of hysterectomy (~2000) due to cancer History of tubal ligation Family History Other Heart disease Social History Smoking and tobacco status: current every day smoker Physical Exam Const: COMMON NORMALS: no acute distress, patient oriented x3 and healthy appearing HENMT: COMMON NORMALS: normocephalic and atraumatic HEAD & SCALP: normocephalic and atraumatic Eye: COMMON NORMALS: Equal, round and reactive pupils present and EOMs intact bilaterally PUPIL: Yes Equal, round and reactive pupils present Neck/C-Spine: COMMON NORMALS: full ROM and supple Chest: COMMONS NORMALS: normal inspection of the chest and normal palpation of entire chest wall Resp: COMMON NORMALS: normal respiratory effort, No retractions, No use of accessory muscles and clear to auscultation bilaterally AUSCULTATION: clear to auscultation bilaterally Cardio: COMMON NORMALS: regular rate, regular rhythm and No murmurs present (Cardio) RATE: regular rate RHYTHM: regular rhythm GI: COMMON NORMALS: Normal to inspection, nondistended, normoactive bowel sounds present, Soft to palpation, non-tender and no masses PALPATION: Yes Soft to palpation Extremity: COMMON NORMALS: normal to inspection and full ROM Neuro: COMMON NORMALS: patient oriented x3, moves all extremities and no focal motor deficits Psych: COMMON NORMALS: mental status grossly normal, Normal thought process present and cooperative THOUGHT PROCESS: Normal thought process present Skin: COMMON NORMALS: no rashes or lesions noted and no wounds GENERAL SKIN EXAM: no rashes or lesions noted Course Vital Signs: Vital signs: Vital Signs Temperature 98.0 F 06/25/22 22:13 Pulse Rate 79 06/26/22 01:45 Respiratory Rate 14 06/26/22 01:45 Blood Pressure 105/62 06/26/22 01:45 Pulse Oximetry 99 06/26/22 01:45 Oxygen Delivery Me thod 06/25/22 22:13 MDM - Chest Pain Medical Decision Making Addendum to note on 06/25 including physical exam Lab Data : 06/25/22 22:42 06/25/22 22:42 Radiology Impressions Chest X-Ray 06/25/22 22:21 IMPRESSION: 1. No acute abnormality demonstrated. 2. There is no interval change from the prior examination. Laboratory Results WBC 12.5 10^3/uL (4.0-10.0) H 06/25/22 22:42 RBC 3.71 10^6/uL (4.1-5.3) L 06/25/22 22:42 Hgb 12.5 g/dL (11.5-15.3) 06/25/22 22:42 Hct 37.9 % (37.0-47.0) 06/25/22 22:42 MCV 102.2 fl (81-99) H 06/25/22 22:42 MCH 33.7 pg (28.0-34.0) 06/25/22 22:42 MCHC 33.0 g/dL (30.0-36.0) 06/25/22 22:42 RDW 13.5 % (12.1-15.1) 06/25/22 22:42 Plt Count 414 10^3/cmm (130-400) H 06/25/22 22:42 MPV 9.0 fL (7.4-10.4) 06/25/22 22:42 Neut % (Auto) 67.2 % 06/25/22 22:42 Lymph % (Auto) 26.3 % 06/25/22 22:42 [place] % (Auto) 4.9 % 06/25/22 22:42 Eos % (Auto) 0.7 % 06/25/22 22:42 Baso % (Auto) 0.6 % 06/25/22 22:42 Neut # (Auto) 8.35 10^3/uL (1.8-7.7) H 06/25/22 22:42 Lymph # (Auto) 3.3 10^3/uL (0.8-4.8) 06/25/22 22:42 [place] # (Auto) 0.6 10^3/uL (0.2-0.9) 06/25/22 22:42 Eos # (Auto) 0.1 10^3/uL (0.0-0.8) 06/25/22 22:42 Baso # (Auto) 0.1 10^3/uL (0.0-0.1) 06/25/22 22:42 Nucleated RBC % (auto) 0 % 06/25/22 22:42 Nucleated RBCs # 0.0 /100WBC 06/25/22 22:42 PT 12.20 SECONDS (12.1-14.9) 06/25/22 22:42 INR 0.88 (0.8-1.2) 06/25/22 22:42 Sodium 140 mmol/L (136-145) 06/25/22 22:42 Potassium 3.9 mmol/L (3.5-5.1) 06/25/22 22:42 Chloride 103 mmol/L (98-107) 06/25/22 22:42 Carbon Dioxide 25 mmol/L (22-29) 06/25/22 22:42 Anion Gap 15.9 (5-19) 06/25/22 22:42 BUN 6 mg/dL (6-20) 06/25/22 22:42 Creatinine 0.5 mg/dL (0.5-0.9) 06/25/22 22:42 GFR Calculation 134.0 mL/min (90-130) H 06/25/22 22:42 Glucose 98 mg/dL (65-115) 06/25/22 22:42 Calculated Osmolality 288 mOsm/kg (285-295) 06/25/22 22:42 Calcium 9.5 mg/dL (8.5-10.5) 06/25/22 22:42 Total Bilirubin 0.3 mg/dL (0.15-1.2) 06/25/22 22:42 AST 13 U/L (0-32) 06/25/22 22:42 ALT 6 U/L (0-33) 06/25/22 22:42 Alkaline Phosphatase 74 U/L (35-105) 06/25/22 22:42 Troponin T Baseline 6 ng/L (0-10) 06/25/22 22:42 Troponin T 120 Minute 6.00 ng/L (0-10) 06/26/22 00:22 Delta Troponin T 0 ABS# (0-10) 06/26/22 00:22 Total Protein 7.6 g/dL (6.6-8.7) 06/25/22 22:42 Albumin 4.7 g/dL (3.5-5.2) 06/25/22 22:42 Globulin 2.9 g/dL (1.3-4.6) 06/25/22 22:42 Discharge Plan Discharge Patient Disposition: Home Clinical Impression: Chest pain Condition: Stable Prescriptions: No Action diphenhydramine HCl [Benadryl] 50 mg Capsule 50 mg PO Q6H PRN (Reason: Allergy Symptoms) ibuprofen 200 mg Tablet 200 - 400 mg PO Q6H PRN (Reason: Pain) Tylenol 325 mg Capsule 325 mg PO QID PRN (Reason: Pain) Discharge Orders: Discharge ED (Routine); Ordered 06/26/22 Ordered By: Anthony Duran Referrals: Jerome Fajardo MD [Physician] - 1-3 days Dori Hook MD [Primary Care Provider] - Discharge Diet: Advance as tolerated Discharge Activity: Resume usual activity Patient Instructions: Chest Pain (ED) Coding Level of Care Code ED Install And Repair Technician for Chg Michael
== END 2022-06-26 01:30 | disposition home or self-care (01) ==
PROVIDERS: Emergency Provider Emergency Medicine; PCP Family Medicine
DX: R07.9 Chest pain, unspecified (principal); F17.210 Nicotine dependence, cigarettes, uncomplicated
CPT/HCPCS: 71045; 80053; 84484; 85025; 85610; 93005; 96374; 96375; 99285; J1170; J2405

== ENCOUNTER 2022-09-02 09:43 | Emergency (ER) | payer SELFPAY ==
[2022-09-02 09:46] VITALS: BP 143/75; PULSE 93; RESP 18; TEMP 36.8; O2SAT 96
--- NOTE | 2022-09-02 09:52 | XR_ITS ---
WS: [id number] Portable AP upright chest, 09/02/2022 Clinical Data: dyspnea/cough Comparison: Portable chest, 06/25/2022 Findings: No nodules, masses or effusions are seen. The heart is normal. The pulmonary vascularity is not increased. No pneumonia or pneumothorax is seen. XR/XR chest 1V portable [id number] Impression: Negative chest.
--- NOTE | 2022-09-02 09:52 | ECG_ITS ---
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 Measurements Intervals [place] Rate: 81 P: 60 SD: 137 QRS: 102 QRSD: 96 T: -77 QT: 356 QTc: 415 Interpretive Statements SINUS RHYTHM RIGHT AXIS DEVIATION [QRS AXIS > 100] ST DEVIATION AND MODERATE T-WAVE ABNORMALITY, CONSIDER ANTEROLATERAL ISCHEMIA [-0.1+ mV T-WAVE IN V3-V6] ST DEVIATION AND MODERATE T-WAVE ABNORMALITY, CONSIDER INFERIOR ISCHEMIA [-0.1+ mV T-WAVE IN II/aVF] Compared to ECG 06/26/2022 00:24:36 Right-axis deviation now present Possible ischemia now present T-wave abnormality still present Electronically Signed On 09-02-2022 12:52:19 GR[employer]ER [employer]EN [employer] by Miladis Lloyd M.D. [email or web address] [facility] Ltdeastern [facility].[employer]/store/OM/[id number]
[2022-09-02 10:04] VITALS: BP 118/87; PULSE 87; O2SAT 98
--- NOTE | 2022-09-02 10:12 | ED_ITS ---
HPI - SOB/Dyspnea General: Chief Complaint: Shortness of Breath/Dyspnea Stated Complaint: SOB Time Seen by Provider: 09/02/22 09:52 Source: patient Mode of arrival: ambulatory History of Present Illness: HPI Narrative: 42-year-old female presents emergency room complaining of pain with inspiration headache and nonproductive cough with on and off fever for about the last week. Highest temp she had was 101.5. She does smoke about half a pack a day. Denies any hemoptysis. Vital signs stable O2 sat normal on initial presentation. She denies any abdominal pain vomiting or diarrhea. MD elicited complaint: shortness of breath and cough Onset (ago): day(s) Context: recent illness Timing: constant Severity: moderate Exacerbating factors: exertion and coughing Relieving factors: nothing Associated symptoms: Reports cough; Deny abdominal pain, chest congestion, chest pain, diaphoresis, dizziness, extremity pain, fever(s), hemoptysis, lightheadedness, myalgias, nausea, or thopnea, palpitations, paresthesias, polydipsia, polyuria, rash, sense of impending doom, syncope or vomiting Treatment prior to arrival: none Review of Systems Const: Denies: fever(s), chills or diaphoresis ENMT: Denies: throat pain, ear or mastoid pain, nasal discharge or nasal congestion Card: Denies: chest pain, palpitations, lightheadedness, syncope or orthopnea Resp: Denies: hemoptysis or chest congestion GI: Denies: abdominal pain, nausea or vomiting : Denies: flank pain, difficulty voiding, dysuria, urinary frequency or urinary urgency Musc: Denies: extremity pain Skin/Breast: Denies: rash or pruritus Neuro: Denies: dizziness Endo: Denies: polyuria or polydipsia PFSH ED PFSH: Medical History Acquired hypothyroidism Depression with anxiety Surgical History History of hysterectomy (~2000) due to cancer History of tubal ligation Family History Grandmother Myocardial infarction Grandfather Myocardial infarction Family/Other Myocardial infarction Mother Stroke Hypertension Diabetes Other Heart disease Social History Smoking and tobacco status: current every day smoker cigarettes Packs smoked per day: 1 [ Other cigarette details: Trying to quit] Physical Exam Const: COMMON NORMALS: no acute distress GENERAL APPEARANCE: cooperative and comfortable ORIENTATION/CONSCIOUSNESS: Yes awake, Yes oriented to person, Yes oriented to place and Yes oriented to time HENMT: COMMON NORMALS: normocephalic, atraumatic and hearing grossly normal bilaterally HEAD & SCALP: normocephalic and atraumatic Resp: COMMON NORMALS: normal respiratory effort, No retractions and No use of accessory muscles AUSCULTATION: wheezes Cardio: COMMON NORMALS: regular rate, regular rhythm and No murmurs present (Cardio) RATE: regular rate RHYTHM: regular rhythm GI: COMMON NORMALS: Soft to palpation and No hepatosplenomegaly present AUSCULTATION: Yes normoactive bowel sounds PALPATION: Yes Soft to palpation, No Tenderness to palpation present (GI), No Guarding due to palpation present (GI) and Yes No hepatosplenomegaly present Extremity: COMMON NORMALS: normal to inspection, capillary refill normal, no clubbing, cyanosis or edema, no calf tenderness and no pedal edema Neuro: SENSORIUM/ORIENTATION: Yes oriented to person, Yes oriented to place and Yes oriented to time Skin: COMMON NORMALS: no rashes or lesions noted GENERAL SKIN EXAM: no rashes or lesions noted Course Vital Signs: Vital signs: Vital Signs Temperature 98.3 F 09/02/22 09:46 Pulse Rate 88 09/02/22 11:06 Respiratory Rate 18 09/02/22 10:36 Blood Pressure 118/87 09/02/22 10:04 Pulse Oximetry 98 09/02/22 11:06 Oxygen Delivery Me thod 09/02/22 10:36 MDM - SOB/Dyspnea Medical Decision Making Labs and imaging reviewed. No acute infiltrate. Given her degree of symptoms and productive cough I think it is worthwhile for her to start on prednisone taper. Encourage aggressive use of albuterol to improve pulmonary toilet. Follow-up with primary care if not improving. Medical Records I reviewed the patient's medical records. Lab Data I reviewed the patient's lab results. Labs/Radiology: Radiology Impressions Chest X-Ray 09/02/22 09:52 Impression: Negative chest. Laboratory Results Influenza Type A Ag negative (Negative) 09/02/22 10:38 Influenza Type B Ag negative (Negative) 09/02/22 10:38 Discharge Plan Discharge Patient Disposition: Home Clinical Impression: Bronchitis Condition: Stable Prescriptions: New Medrol (Hany) 4 mg tablets,dose pack See Rx Instructions .ROUTE .COMPLEX Qty: 21 0RF Rx Instructions: orally per package directions albuterol sulfate 90 mcg/actuation HFA aerosol inhaler 2 inh INHALATION Q4H PRN (Reason: shortness of breath or wheezing) Qty: 18 0RF No Action nitroglycerin 0.4 mg tablet, sublingual 0.4 mg sublingual Q5M PRN (Reason: chest pain) Qty: 30 3RF Rx Instructions: do not exceed 3 doses per episode diphenhydramine HCl [Benadryl] 50 mg Capsule 50 mg PO Q6H PRN (Reason: Allergy Symptoms) Aspir-81 81 mg Tablet,Delayed Release (Dr/Ec) 81 mg PO QAM NyQuil Liquicaps Capsule 2 cap PO BEDTIME Dayquil Cold And Flu 2 cap PO Q4H Discharge Orders: Discharge ED (Routine); Ordered 09/02/22 Ordered By: Costa Rider Referrals: Dori Hook MD [Primary Care Provider] - Discharge Diet: Usual diet Discharge Activity: Increase activity as tolerated Patient Instructions: Opioid Safety, Pain Management Activity Restrictions/Additional Instructions: You are seen today for cough and shortness of breath. Your chest x-ray was normal. Flu swab is pending and we will contact you when the results are available. Started on albuterol and a course of prednisone. If not improving follow-up with your primary care doctor. Coding Level of Care Code ED Coping Machine Operator for Santy Rodriguez
[2022-09-02 10:30] VITALS: O2SAT 98
[2022-09-02] MEDS: ipratropium-albuterol 3 mL Neb INHALATION (10:35)
[2022-09-02 10:36] VITALS: PULSE 78; RESP 18; O2SAT 97
[2022-09-02] MEDS: dexamethasone 10 mg/mL INJ IM (10:37)
[2022-09-02 11:06] VITALS: PULSE 88; O2SAT 98
[2022-09-02 11:14] LABS: Influenza A by IFA negative (Negative); Influenza B by IFA negative (Negative)
== END 2022-09-02 11:05 | disposition home or self-care (01) ==
PROVIDERS: Emergency Provider Family Medicine; PCP Family Medicine
DX: J40 Bronchitis, not specified as acute or chronic (principal); F17.210 Nicotine dependence, cigarettes, uncomplicated
CPT/HCPCS: 71045; 87804; 93005; 94640; 96372; 99285; J1100

== ENCOUNTER 2023-06-15 12:48 | Emergency (ER) | payer SELFPAY ==
[2023-06-15] VITALS (8 sets, daily range): BP systolic 119–160; BP diastolic 86–110; PULSE 63–80; RESP 16–19; TEMP 37; O2SAT 95–97; BMI 20.7
--- NOTE | 2023-06-15 12:51 | XR_ITS ---
WS: [id number] XR chest 1V portable [id number] REASON FOR EXAM: chest pain FINDINGS: The chest is unchanged compared to 09/02/2022. The heart and the mediastinum are within normal limits. Normal thoracic aorta. Calcified granulomatous disease in both hemithoraces. No acute pulmonary parenchymal or pleural abnormality. Bony thorax is intact without significant focal abnormality. IMPRESSION: No acute chest abnormality.
--- NOTE | 2023-06-15 12:52 | ECG_ITS ---
[facility] Test Date: 2023-06-15 Pat Name: Celina Reagan Department: Room: Gender: Female Deck Cadet: : 1980 Requested By: Sydney Martin Order Number: [id number] Lenard MD: Miladis Lloyd M.D. Measurements Intervals [place] Rate: 74 P: 51 AL: 169 QRS: 81 QRSD: 80 T: -14 QT: 364 QTc: 406 Interpretive Statements SINUS RHYTHM LOW QRS VOLTAGE IN PRECORDIAL LEADS [QRS DEFLECTION < 1.0 mV IN CHEST LEADS] SEPTAL MYOCARDIAL INFARCTION , OF INDETERMINATE AGE [40+ ms Q WAVE IN V1/V2] MODERATE T-WAVE ABNORMALITY, CONSIDER INFERIOR ISCHEMIA [-0.1+ mV T-WAVE IN II/aVF] Compared to ECG 09/02/2022 10:15:22 Low QRS voltage now present Myocardial infarct finding now present Right-axis deviation no longer present T-wave abnormality still present Possible ischemia still present Electronically Signed On 06-15-2023 21:25:16 CDT by Miladis Lloyd M.D. [id number]
--- NOTE | 2023-06-15 13:00 | ED_ITS ---
HPI - Chest Pain General: Chief Complaint: Chest Pain Stated Complaint: chest pain, dizzy, nausea Time Seen by Provider: 06/15/23 12:51 Source: patient Mode of arrival: ambulatory Limitations: no limitations History of Present Illness: Patient is a 43-year-old female with a history of HTN, hyperlipidemia, and smoking history who presents to ED today with complaint of left-sided chest pain. Patient states she has had intermittent left-sided chest pains for about a year now. She at one point followed up with our radiology scheduler Dr. Lloyd but states she now sees cardiology in [facility] as she states it is cheaper care. Patient states she had some type of cardiac testing several months ago and told it was normal . She states she normally takes nitro to get her pain to go away. She denies SOB/difficulty breathing. Denies lower extremity swelling, orthopnea, PND. MD complaint: chest pain Onset (ago): day(s) (yesterday) Timing of current episode: episodic Prior episodes: Yes Onset: during rest Pain location: left chest Pain radiation: none Severity: severe Pain scale (0-10): 7 Quality: sharp Relieving factors: nothing Exacerbating factors: nothing Associated symptoms: Reports nausea; Deny abdominal pain, dyspnea, fever(s), palpitations, syncope or vomiting Treatment prior to arrival: none Risk Factors: Coronary artery disease risk factors: smoking history, hyperlipidemia and hypertension Thoracic aortic dissection risk factors: none Related Data: On Oral Contraceptives: No Review of Systems Const: Denies: fever(s), chills, body aches, fatigue or malaise Eyes: Denies: change in vision or blurry vision Card: Reports: chest pain; Denies: palpitations, irregular heart rhythm, edema, swelling of feet/ankles, lightheadedness, syncope, pre-syncope, dyspnea on exertion, orthopnea, leg pain with exertion or acrocyanosis Resp: Denies: dyspnea, productive cough, non-productive cough, wheezing, stridor, pain on inspiration, change in phlegm color, hemoptysis or chest congestion GI: Reports: nausea; Denies: abdominal pain, vomiting, heartburn or diarrhea : Denies: flank pain or dysuria Musc: Denies: neck pain, back pain, extremity pain, extremity swelling or joint pain Skin/Breast: Denies: rash Neuro: Denies: headache(s), numbness in extremities, weakness in extremities, sensory changes or dizziness PFSH ED PFSH: Medical History Acquired hypothyroidism Depression with anxiety Surgical History History of hysterectomy (~2000) due to cancer History of tubal ligation Family History Grandmother Myocardial infarction Grandfather Myocardial infarction Family/Other Myocardial infarction Mother Stroke Hypertension Diabetes Other Heart disease Social History Smoking and tobacco status: current every day smoker cigarettes Packs smoked per day: 1 [ Other cigarette details: Trying to quit] Physical Exam Const: COMMON NORMALS: no acute distress, average body habitus, patient oriented x3, no limitations, healthy appearing, alert and well nourished GENERAL APPEARANCE: cooperative ORIENTATION/CONSCIOUSNESS: Yes awake, Yes oriented to person, Yes oriented to place and Yes oriented to time HENMT: COMMON NORMALS: normocephalic and atraumatic HEAD & SCALP: normocephalic and atraumatic Eye: COMMON NORMALS: no scleral icterus Neck/C-Spine: COMMON NORMALS: full ROM, no lymphadenopathy, supple and no meningeal signs Chest: COMMONS NORMALS: normal inspection of the chest and normal palpation of entire chest wall Resp: COMMON NORMALS: normal respiratory effort and clear to auscultation bilaterally AUSCULTATION: clear to auscultation bilaterally Cardio: COMMON NORMALS: regular rate and regular rhythm RATE: regular rate RHYTHM: regular rhythm GI: COMMON NORMALS: Normal to inspection, nondistended, normoactive bowel sounds present, Soft to palpation, non-tender, No hepatosplenomegaly present and no masses PALPATION: Yes Soft to palpation and Yes No hepatosplenomegaly present : COMMON NORMALS: Yes no CVA tenderness BLADDER/KIDNEY EXAM: Yes no CVA tenderness Back/Pelvis: COMMON NORMALS: no CVA tenderness and thoracic and lumbar spine normal to inspection Extremity: COMMON NORMALS: normal to inspection GENERAL: Yes normal exam except as noted Neuro: LAUREN COMA SCALE: document GCS findings Lauren coma scale eye opening: Spontaneous Lauren coma scale verbal response: Orientated Lauren coma scale motor response: Obey commands Lauren coma scale total score: 15 COMMON NORMALS: patient oriented x3, moves all extremities, no focal motor deficits, no sensory deficits noted and gait normal SENSORIUM/ORIENTATION: Yes alert, Yes oriented to person, Yes oriented to place and Yes oriented to time MENINGEAL SIGNS: Yes no meningeal signs Skin: COMMON NORMALS: no rashes or lesions noted GENERAL SKIN EXAM: no rashes or lesions noted Course Vital Signs: Vital signs: Vital Signs Temperature 98.6 F 06/15/23 12:53 Pulse Rate 71 06/15/23 12:53 Respiratory Rate 16 06/15/23 13:21 Blood Pressure 160/110 06/15/23 12:53 Pulse Oximetry 97 06/15/23 13:21 Oxygen Delivery Me thod Room Air 06/15/23 12:53 MDM - Chest Pain Medical Decision Making Chest pain alleviated here after pain meds/nitro. Patient's blood work is reassuring. Baseline troponin is normal at 6 with a delta of zero. Baseline and repeat EKGs showing no acute changes when compared to EKGs performed 08/2022. Medical records from [facility] in [place], [place] were obtained. It looks like patient had a coronary artery angiogram performed 11/19/2022 that was normal. At this time I do not see any indication for hospitalization as they are unlikely to re-cath her. Trop/EKGs reassuring. Patient states she cannot see her radiology scheduler until late Jun. Will try and get her set back up here with Dr. 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 Return to ED precautions given. Lab Data 06/15/23 13:05 06/15/23 13:05 Laboratory Results WBC 9.57 10^3/uL (3.29-11.43) 06/15/23 13:05 RBC 3.67 10^6/uL (3.85-5.65) L 06/15/23 13:05 Hgb 12.60 g/dL (11.27-16.99) 06/15/23 13:05 Hct 37.6 % (36-47) 06/15/23 13:05 MCV 102.5 fl (85-98) H 06/15/23 13:05 MCH 34.3 pg (27-33) H 06/15/23 13:05 MCHC 33.5 g/dL (30-55) 06/15/23 13:05 RDW 13.9 % (12.1-15.1) 06/15/23 13:05 Plt Count 356 10^3/cmm (157-399) 06/15/23 13:05 MPV 9.1 fL (7.4-10.4) 06/15/23 13:05 Neut % (Auto) 67.0 % 06/15/23 13:05 Lymph % (Auto) 26.8 % 06/15/23 13:05 [place] % (Auto) 3.9 % 06/15/23 13:05 Eos % (Auto) 1.3 % 06/15/23 13:05 Baso % (Auto) 0.7 % 06/15/23 13:05 Neut # (Auto) 6.42 10^3/uL (1.8-7.7) 06/15/23 13:05 Lymph # (Auto) 2.6 10^3/uL (0.8-4.8) 06/15/23 13:05 [place] # (Auto) 0.4 10^3/uL (0.2-0.9) 06/15/23 13:05 Eos # (Auto) 0.1 10^3/uL (0.0-0.8) 06/15/23 13:05 Baso # (Auto) 0.1 10^3/uL (0.0-0.1) 06/15/23 13:05 Nucleated RBC % (auto) 0 % 06/15/23 13:05 Nucleated RBCs # 0.0 /100WBC 06/15/23 13:05 Sodium 135 mmol/L (136-145) L 06/15/23 13:05 Potassium 4.1 mmol/L (3.5-5.1) 06/15/23 13:05 Chloride 99 mmol/L (98-107) 06/15/23 13:05 Carbon Dioxide 25 mmol/L (22-29) 06/15/23 13:05 Anion Gap 15.1 (5-19) 06/15/23 13:05 BUN 12 mg/dL (6-20) 06/15/23 13:05 Creatinine 0.6 mg/dL (0.5-0.9) 06/15/23 13:05 GFR Calculation 108.1 mL/min (90-130) 06/15/23 13:05 Glucose 83 mg/dL (65-115) 06/15/23 13:05 Calculated Osmolality 279 mOsm/kg (285-295) L 06/15/23 13:05 Calcium 9.0 mg/dL (8.5-10.5) 06/15/23 13:05 Total Bilirubin 0.4 mg/dL (0.15-1.2) 06/15/23 13:05 AST 18 U/L (0-32) 06/15/23 13:05 ALT 9 U/L (0-33) 06/15/23 13:05 Alkaline Phosphatase 81 U/L (35-105) 06/15/23 13:05 Troponin T Baseline 6 ng/L (0-10) 06/15/23 13:05 Troponin T 120 Minute 6.00 ng/L (0-10) 06/15/23 15:05 Total Protein 7.5 g/dL (6.6-8.7) 06/15/23 13:05 Albumin 4.7 g/dL (3.5-5.2) 06/15/23 13:05 Globulin 2.8 g/dL (1.3-4.6) 06/15/23 13:05 HCG, Qual Negative (Negative) 06/15/23 13:05 All radiology interpretation(s) finalized by discharge EKG Data EKG 1: EKG interpretation date: 06/15/23 EKG interpretation time: 12:57 Prior EKG tracings: available for review (no acute changes when compared 08/2022) Ischemic changes: t wave inversions (no change compared to previous) Discharge Plan Discharge Patient Disposition: Home Clinical Impression: Chest pain Qualifiers: Chest pain type: unspecified Qualified Code(s): R07.9 - Chest pain, unspecified Condition: Stable Prescriptions: No Action nitroglycerin 0.4 mg tablet, sublingual 0.4 mg sublingual Q5M PRN (Reason: chest pain) Qty: 30 3RF Rx Instructions: do not exceed 3 doses per episode diphenhydramine HCl [Benadryl] 50 mg Capsule 50 mg PO Q6H PRN (Reason: Allergy Symptoms) atorvastatin 80 mg tablet 80 mg PO DAILY isosorbide mononitrate 30 mg tablet extended release 24 hr 30 mg PO DAILY diclofenac sodium 75 mg tablet,delayed release (DR/EC) 75 mg PO DAILY escitalopram oxalate 10 mg tablet 10 mg PO DAILY ezetimibe 10 mg tablet 10 mg PO BEDTIME aspirin [Aspir-81] 81 mg Tablet,Delayed Release (Dr/Ec) 81 mg PO QAM NyQuil Liquicaps Capsule 2 cap PO BEDTIME PRN (Reason: Cold Symptoms) Dayquil Cold And Flu 2 cap PO Q4H PRN (Reason: Cold Symptoms) albuterol sulfate 90 mcg/actuation HFA aerosol inhaler 2 inh INHALATION Q4H PRN (Reason: shortness of breath or wheezing) Qty: 18 0RF Discharge Orders: Discharge ED (Routine); Ordered 06/15/23 Ordered By: Sydney Martin Referrals: Lo Moss APN [Primary Care Provider] - Coding Level of Care Code ED Safety Professional for Santy Rodriguez
[2023-06-15] MEDS: nitroglycerin 0.4 mg sublingual Tablet SUBLINGUAL ×2 (13:14→14:46)
[2023-06-15 13:18] LABS: Basophils # 0.1 10^3/uL (0.0-0.1); Basophils % 0.7 %; Eosinophils # 0.1 10^3/uL (0.0-0.8); Eosinophils % 1.3 %; Hematocrit 37.6 % (36-47); Lymphocytes # 2.6 10^3/uL (0.8-4.8); Lymphocytes % 26.8 %; Mean Corpuscular HGB Conc 33.5 g/dL (30-55); Mean Corpuscular Hemoglobin 34.3 pg (27-33); Mean Corpuscular Volume 102.5 fl (85-98); Mean Platelet Volume 9.1 fL (7.4-10.4); Monocytes # 0.4 10^3/uL (0.2-0.9); Monocytes % 3.9 %; Neutrophils # 6.42 10^3/uL (1.8-7.7); Nucleated Red Blood Cells % 0 %; Platelet Count 356 10^3/cmm (157-399); Red Blood Count 3.67 10^6/uL (3.85-5.65); Red Cell Distribution Width 13.9 % (12.1-15.1); White Blood Count 9.57 10^3/uL (3.29-11.43)
[2023-06-15] MEDS: morphine 4 mg/mL SDV 1 mL IVP (13:21)
[2023-06-15] MEDS: ondansetron 2 mg/ML SDV 2 mL 4 MG IVP (13:21)
[2023-06-15 13:38] LABS: HCG, Serum Qual Negative (Negative)
[2023-06-15 13:39] LABS: Alanine Aminotransferase 9 U/L (0-33); Albumin Level 4.7 g/dL (3.5-5.2); Alkaline Phosphatase 81 U/L (35-105); Anion Gap 15.1 (5-19); Aspartate Amino Transferase 18 U/L (0-32); Blood Urea Nitrogen 12 mg/dL (6-20); Carbon Dioxide 25 mmol/L (22-29); Chloride 99 mmol/L (98-107); Globulin 2.8 g/dL (1.3-4.6); Glomerular Filtration Rate 108.1 mL/min (90-130); Glucose 83 mg/dL (65-115); Osmolality Calculated 279 mOsm/kg (285-295); Potassium 4.1 mmol/L (3.5-5.1); Sodium 135 mmol/L (136-145); Total Bilirubin 0.4 mg/dL (0.15-1.2); Total Protein 7.5 g/dL (6.6-8.7)
[2023-06-15 13:43] LABS: Troponin(5th) Baseline 6 ng/L (0-10)
[2023-06-15] MEDS: metoclopramide 5 mg/mL SDV 2 mL 10 MG IVP (14:46)
--- NOTE | 2023-06-15 14:52 | ECG_ITS ---
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 Measurements Intervals [place] Rate: 62 P: 46 NC: 159 QRS: 95 QRSD: 98 T: 253 QT: 405 QTc: 412 Interpretive Statements SINUS RHYTHM BORDERLINE RIGHT AXIS DEVIATION [QRS AXIS > 90] LOW QRS VOLTAGE IN PRECORDIAL LEADS [QRS DEFLECTION < 1.0 mV IN CHEST LEADS] MODERATE T-WAVE ABNORMALITY, CONSIDER ANTERIOR ISCHEMIA [-0.1+ mV T-WAVE IN V3/V4] Compared to ECG 06/15/2023 12:57:53 Myocardial infarct finding no longer present T-wave abnormality still present Possible ischemia still present Electronically Signed On 06-15-2023 21:35:03 CDT by Miladis Lloyd M.D. [id number]
--- NOTE | 2023-06-15 15:22 | PC.SOCIAL ---
Cardiology Referral Referral message sent to cardiology at this time, clinic to contact patient with appt date/time.
[2023-06-15 15:50] LABS: Troponin 5 2HR Delta 0 ABS# (0-10)
== END 2023-06-15 16:57 | disposition home or self-care (01) ==
PROVIDERS: Emergency Provider Physician Assistant; PCP Nurse Practitioner Family
DX: R07.9 Chest pain, unspecified (principal); Z79.82 Long term (current) use of aspirin; F17.210 Nicotine dependence, cigarettes, uncomplicated
CPT/HCPCS: 36415; 71045; 80053; 84484; 84703; 85025; 93005; 96374; 96375; 99285; J2270; J2405; J2765

== ENCOUNTER 2023-09-22 10:08 | Emergency (ER) | payer SELFPAY ==
[2023-09-22 10:12] VITALS: BP 176/100; PULSE 102; RESP 16; TEMP 37.1; O2SAT 98
--- NOTE | 2023-09-22 10:37 | ED_ITS ---
HPI - Dental/Oral General: Chief complaint: Dental/Oral Stated complaint: swollen right side of neck, headache Time Seen by Provider: 09/22/23 10:23 Source: patient Mode of arrival: ambulatory Limitations: no limitations History of Present Illness: 43-year-old female who states she has parnell d right lower dental pain for the last 4 days she has been on Amoxil at home but is continue to have swelling in the right side of her face she has poor dentition states she is scheduled in October to have her lower teeth pulled. Denies any difficulty swallowing denies any fevers. Associated symptoms: Denies fever(s) Review of Systems Const: Denies: fever(s), chills, body aches or change in appetite ENMT: Reports: dental pain; Denies: throat pain Card: Denies: chest pain Resp: Denies: dyspnea GI: Denies: abdominal pain, nausea, vomiting or diarrhea Musc: Denies: neck pain or back pain Skin/Breast: Denies: rash Neuro: Denies: headache(s) PFSH ED PFSH: Medical History Depression with anxiety Acquired hypothyroidism Surgical History History of tubal ligation History of hysterectomy (~2000) due to cancer Family History Grandmother Myocardial infarction Grandfather Myocardial infarction Family/Other Myocardial infarction Mother Stroke Hypertension Diabetes Other Heart disease Social History Smoking and tobacco/nicotine status: current every day tobacco/nicotine user cigarettes Packs smoked per day: 1 [ Other cigarette details: Trying to quit] Physical Exam Const: COMMON NORMALS: no acute distress, patient oriented x3 and healthy appearing HENMT: COMMON NORMALS: normocephalic and atraumatic HEAD & SCALP: normocephalic and atraumatic OTHER: Poor dentition multiple dental caries tenderness over right lower molar no obvious abscess she has some very mild trismus Eye: COMMON NORMALS: Equal, round and reactive pupils present and EOMs intact bilaterally PUPIL: Yes Equal, round and reactive pupils present Neck/C-Spine: COMMON NORMALS: full ROM and supple Chest: COMMONS NORMALS: normal inspection of the chest Resp: COMMON NORMALS: normal respiratory effort Extremity: COMMON NORMALS: normal to inspection and full ROM Neuro: COMMON NORMALS: patient oriented x3, moves all extremities and no focal motor deficits Psych: COMMON NORMALS: mental status grossly normal, Normal thought process present and cooperative THOUGHT PROCESS: Normal thought process present Skin: COMMON NORMALS: no rashes or lesions noted and no wounds GENERAL SKIN EXAM: no rashes or lesions noted Course Vital Signs: Vital signs: Vital Signs Temperature 98.8 F 09/22/23 10:12 Pulse Rate 102 H 09/22/23 10:12 Respiratory Rate 16 09/22/23 10:12 Blood Pressure 176/100 09/22/23 10:12 Pulse Oximetry 98 09/22/23 10:12 Oxygen Delivery Me thod Room Air 09/22/23 10:12 MDM - Dental/Oral Medical Decision Making Patient presents here with dental pain noted have dental caries no abscess very mild trismus she is already on Amoxil we will add Flagyl she is to follow-up with dentist return if worsening she understands agrees to plan No radiology studies performed this visit Discharge Plan Discharge Patient Disposition: Home Clinical Impression: Toothache, Dental caries Condition: Stable Prescriptions: New metronidazole 500 mg tablet 500 mg PO Q8H 7 Days Qty: 21 0RF naproxen [Naprosyn] 500 mg tablet 500 mg PO BID PRN (Reason: pain) Qty: 20 0RF No Action nitroglycerin 0.4 mg tablet, sublingual 0.4 mg sublingual Q5M PRN (Reason: chest pain) Qty: 30 3RF Rx Instructions: do not exceed 3 doses per episode diphenhydramine HCl [Benadryl] 50 mg Capsule 50 mg PO Q6H PRN (Reason: Allergy Symptoms) atorvastatin 80 mg tablet 80 mg PO DAILY isosorbide mononitrate 30 mg tablet extended release 24 hr 30 mg PO DAILY diclofenac sodium 75 mg tablet,delayed release (DR/EC) 75 mg PO DAILY escitalopram oxalate 10 mg tablet 10 mg PO DAILY ezetimibe 10 mg tablet 10 mg PO BEDTIME aspirin [Aspir-81] 81 mg Tablet,Delayed Release (Dr/Ec) 81 mg PO QAM NyQuil Liquicaps Capsule 2 cap PO BEDTIME PRN (Reason: Cold Symptoms) Dayquil Cold And Flu 2 cap PO Q4H PRN (Reason: Cold Symptoms) albuterol sulfate 90 mcg/actuation HFA aerosol inhaler 2 inh INHALATION Q4H PRN (Reason: shortness of breath or wheezing) Qty: 18 0RF Discharge Orders: Discharge ED (Routine); Ordered 09/22/23 Ordered By: Anthony Duran Referrals: Lo Moss APN [Primary Care Provider] - Discharge Diet: Advance as tolerated Discharge Activity: Resume usual activity Patient Instructions: Opioid Safety, Pain Management Coding Level of Care Code ED City Clerk for Santy Rodriguez
[2023-09-22] MEDS: HYDROcodone-acetaminophen 5-325 mg Tablet 1 TAB PO (10:53)
== END 2023-09-22 10:55 | disposition home or self-care (01) ==
PROVIDERS: Emergency Provider Emergency Medicine; PCP Nurse Practitioner Family
DX: K02.9 Dental caries, unspecified (principal); Z79.82 Long term (current) use of aspirin; F17.210 Nicotine dependence, cigarettes, uncomplicated
CPT/HCPCS: 99283

== ENCOUNTER 2024-12-15 10:24 | Outpatient (CLI) | payer MEDICAID, SELFPAY ==
--- NOTE | 2024-12-15 10:35 | XR_ITS ---
WS: [id number] Cervical spine, 3 views, 12/15/2024 Clinical Data: CERVICAL SPINE PAIN Comparison: None. Findings: No compression fractures are seen. The disc heights are normal. There is no prevertebral soft tissue swelling. The odontoid is unremarkable. The soft tissues of the neck and the lung apices are normal. XR/XR cervical spine 3V* [id number] Impression: Negative cervical spine.
--- NOTE | 2024-12-15 10:35 | XR_ITS ---
WS: [id number] Bilateral hips, 2 views each, 12/15/2024 Clinical Data: HIP PAIN Comparison: None. Findings: Right hip: There are no fractures or dislocations. The bladder is full. The right hip shows no erosion, narrowing, sclerosis, cyst formation or fragmentation of the right femoral head. The adjacent pelvis and the soft tissues are normal. Left hip: There are no fractures or dislocations. The bladder is full. The left hip shows no erosion, narrowing, sclerosis, cyst formation or fragmentation of the left femoral head. The adjacent pelvis and soft tissues are normal. XR/XR hip BI 2V wo/w pel [id number] Impression: Negative bilateral hips.
== END 2024-12-15 10:25 | disposition home or self-care (01) ==
LOC: RAD 10:28
PROVIDERS: PCP Nurse Practitioner Family; Visit Provider Nurse Practitioner Family
DX: M54.2 Cervicalgia (principal); M25.559 Pain in unspecified hip
CPT/HCPCS: 72040; 73521

== ENCOUNTER 2025-02-22 06:01 | Outpatient (CLI) | payer MEDICAID, SELFPAY ==
--- NOTE | 2025-02-22 06:15 | USCV_ITS ---
Celina Reagan Age: 44 Gender: F : 1980 Exam Date: 02/22/2025 06:15 Ordering Phys: Ryne Salvador MD ([email or web address]) Technologist: Exam Location: [facility] – [place], [place] Indication: cp BP: 140 / 80 HR: 94 Rhythm: Sinus Technical Quality: MEASUREMENTS (Male / Female) Normal Values 2D ECHO LV Diastolic Diameter PLAX 4.0 cm 4.2 - 5.9 / 3.9 - 5.3 cm IVS Diastolic Thickness 1.2 cm 0.6 - 1.0 / 0.6 - 0.9 cm IVS Systolic Thickness 1.4 cm LVPW Diastolic Thickness 0.9 cm 0.6 - 1.0 / 0.6 - 0.9 cm LVPW Systolic Thickness 1.8 cm LVOT Diameter 2.0 cm LV Ejection Fraction 2D Teich 61.8 % LV Ejection Fraction MOD 4C 64.4 % LV Ejection Fraction MOD 2C 64.9 % LV Ejection Fraction 2C AL 65.7 % LA Diameter 3.0 cm RA Systolic Volume 4C AL 26.9 ml RA Systolic Volume 4C MOD 26.2 ml LA Sys Volume AL 31.7 cm cubed LA Sys Volume Index AL 22.4 cm cubed/m squared Aorta at Sinotubular Diameter 2.7 cm IVC Diameter 1.6 cm M-MODE LA Ao Ratio MM 1.2 AV Cusp Separation MM 2.2 cm DOPPLER AV Peak Velocity 110.0 cm/s LVOT Peak Velocity 88.0 cm/s AV Area Cont Eq vti 2.8 cm squared AV Area Cont Eq pk 2.6 cm squared MV Peak Velocity 64.0 cm/s MV Area PHT 5.0 cm squared Mitral E to A Ratio 0.8 TV Peak Velocity 144.0 cm/s TR Peak Velocity 166.0 cm/s TR Peak Gradient 11.0 mmHg TV Peak E Velocity 103.0 cm/s PV Peak Velocity 82.0 cm/s FINDINGS Left Ventricle Normal left ventricular size, systolic function and wall thickness, with no regional wall motion abnormalities. Left ventricular ejection fraction is estimated at 60 %. Grade I/IV diastolic dysfunction (abnormal relaxation filling pattern), normal to mildly elevated filling pressures. Right Ventricle The right ventricle is normal in size and function. Right Atrium The right atrium is normal in size. Left Atrium The left atrium is normal in size. Mitral Valve Mildly thickened mitral valve. No mitral valve stenosis. Trace mitral valve regurgitation. Aortic Valve Structurally normal aortic valve without significant sclerosis or stenosis. There is no aortic regurgitation. Tricuspid Valve Structurally normal tricuspid valve without significant stenosis or regurgitation. Pulmonary artery systolic pressure is normal. Pulmonic Valve Structurally normal pulmonic valve without significant stenosis. There is no pulmonic regurgitation. Pericardium Normal pericardium without effusion. Aorta Normal ascending aorta dimension. IVC The inferior vena cava appears normal. CONCLUSIONS Normal left ventricular size, systolic function and wall thickness, with no regional wall motion abnormalities. Left ventricular ejection fraction is estimated at 60 %. Grade I/IV diastolic dysfunction (abnormal relaxation filling pattern), normal to mildly elevated filling pressures. There is no pericardial effusion. Mildly thickened mitral valve. No mitral valve stenosis. Trace mitral valve regurgitation. Right atrial pressure is around 5 mm of mercury. Ryne Salvador MD (Electronically Signed) Final Date: 04 March 2025 16:21 S
[2025-02-22 06:32] VITALS: BMI 20.4
--- NOTE | 2025-02-22 06:37 | ECG_ITS ---
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 Baseline heart rate was 88 beats per minute. Baseline blood pressure was 118/78 millimeters of mercury. Target heart rate was 174 beats per minute. Maximum heart rate achieved was 164, which was 94 % of the target heart rate. Maximum blood pressure was 162/78 millimeters of mercury. Total exercise time was 7 minutes 31-second. Maximum METs achieved was 10.2, maximum VO2 was 35.7. The reason for ending the test was maximum effort achieved. The patient complained of shortness of breath during the stress test, which then resolved at the end of the test. ELECTROCARDIOGRAM: BASELINE: Showed sinus rhythm, left axis, inferolateral and anteroseptal ST nonspecific changes EXERCISE: At the peak exercise level, significant inferolateral ST depression noted which is suggestive of ischemia RECOVERY: During the recovery period, heart rate dropped appropriately. Inferolateral segment ST-T changes in the recovery suggestive of ischemia noted. CONCLUSION: 1. Exercise capacity fair 2. Heart rate response was appropriate. 3. Blood pressure response was appropriate. 4. Symptoms not suggestive of ischemia. 5. Electrocardiogram portion of the stress test was suggestive of ischemia. Electronically Signed On 03-05-2025 21:17:58 CDT by RYNE SALVADOR [id number]
--- NOTE | 2025-02-22 06:37 | NMCV_ITS ---
NM efraín perf SPECT r/s* [id number] Celina Reagan Age: 44 Gender: F : 1980 Exam Date: 02/22/2025 07:28 Ordering Phys: Ryne Salvador MD ([email or web address]) Technologist: MEMO Boss Exam Location: [facility] Indications: CP STRESS TEST Please see separate stress test report in [facility] for full findings IMAGE PROTOCOL Rest/Stress 1 Exercise Day Radiopharmaceutical Dose (mCi) Administration Site Administered by Rest: Tc-99m 10.8 IV MEMO Boss Sestamibi Stress:Tc-99m 32.3 IV Reta Hughes, RUBBER HEEL AND SOLE PRESS TENDER Sestamibi Rest: 22-Feb-2025 60 Discovery 630 Stress: 22-Feb-2025 30 Discovery 630 Radiopharmaceutical was injected at 88 % maximum heart rate. Images obtained in supine and prone position. SPECT RESULTS Technical Quality: Good Raw Data Analysis: Normal Image Corrections: No attenuation or motion correction applied Summed Stress Score: 1 Summed Rest Score: 1 Summed Difference Score: 0 PERFUSION FINDINGS SPECT images demonstrate homogeneous tracer distribution throughout the myocardium. FUNCTIONAL RESULTS (calculated via Gated SPECT) Stress Image LV EF (%): 66 Stress EDV (mL):76 TID: 0.84 Stress ESV (mL):26 FUNCTIONAL FINDINGS: There is normal left ventricular systolic function. IMPRESSIONS Myocardial perfusion imaging is normal. Ryne Salvador MD (Electronically Signed) Final Date: 03 March 2025 20:24 S
[2025-02-22 08:12] VITALS: BP 119/64; PULSE 71
== END 2025-02-22 06:02 | disposition home or self-care (01) ==
PROVIDERS: PCP Nurse Practitioner Family; Visit Provider Internal Medicine Cardiovascular Disease
DX: R06.02 Shortness of breath (principal); R07.9 Chest pain, unspecified; R93.1 Abnormal findings on diagnostic imaging of heart and coronary circulation; I05.9 Rheumatic mitral valve disease, unspecified
CPT/HCPCS: 36415; 78452; 93017; 93306; A9500

== ENCOUNTER → 2025-07-12 17:00 | Outpatient (BNVA) | payer MEDICAID, SELFPAY | PROVIDERS: PCP Nurse Practitioner Family; Visit Provider Internal Medicine Cardiovascular Disease | DX: I10 Essential (primary) hypertension (principal); R07.9 Chest pain, unspecified | CPT/HCPCS: 36415; 80048; 85025 ==

== ENCOUNTER 2025-07-18 07:10 | Outpatient (CLI) | payer MEDICAID, SELFPAY ==
[2025-07-18] VITALS (24 sets, daily range): BP systolic 104–144; BP diastolic 58–98; PULSE 66–101; RESP 14–32; TEMP 36.6; O2SAT 93–97; BMI 20.4
--- NOTE | 2025-07-18 08:30 | XACV_ITS ---
Exam Room: 2 Ht: 155 cm Wt: 49 kg BSA: 1.45 m2 Gender: Female : 1980 Exam Priority: Routine Procedure(s): Procedure Description: Diagnostic procedure Procedure Description: Left Heart Catheterization Procedure Description: Left ventriculography Procedure Description: Coronary Angiography [place] ANNE; Diagnostic Cath Status: Elective Diagnostic Findings * Left Main: significant 80% stenosis, NIKO: 3 flow. * Mid Left Anterior Descending to Distal Left Anterior Descending: luminal irregularities 20% stenosis, NIKO: 3 flow. * Mid Right Coronary Artery: severe 90% stenosis, NIKO: 3 flow. * Distal Right Coronary Artery: significant 80% stenosis, NIKO: 3 flow. * Mid Circumflex: mild 40% stenosis, NIKO: 3 flow. * Coronary angiography shows right dominance. Conclusions 1. Upon engagement of the left main severe dampening was noted therefore we used Yoshi catheter with sideholes however despite of that dampening continues,Left heart cath #1 Ostial 80% stenosis of left main with severe dampening and global ST depression on the monitor noted. Patient complained of chest pain. #2 LAD has luminal irregularity without significant stenosis #3 left circumflex has mild to moderate disease without significant stenosis #4 RCA has proximal and distal 90% stenosis, upon engagement and contrast injection ST depression was noted. Left ventriculography was performed: Left ventricle ejection fraction was 60%, LVEDP was 10 mmHg. There was no wall motion abnormality. 2. There is severe coronary artery disease with four vessel disease. 3. All woods are normal. 4. Normal left ventricular systolic function. Ejection fraction of 60%. Recommendations * 1-Return to recovery for close monitoring and routine cath care 2-TR band off as per protocol 3-Discontinue Plavix for possible CABG 4-Statin with LDL goal of 70 mg/dl, aspirin 81 mg p.o. daily for life long 5-CT surgery consults for CABG 6-Optimal medical management for PR 7-Follow up with Dr. Salvador in four weeks and establish care with primary care physician. Diagnostic RX Recommendation: CABG LV EDP: 10 mmHg Ventriculography Ejection Fraction: 60.0 % Pressures Phase:Rest AO : 137 / 90 ( 109 ) @ 10:07:00 AM 55 / 38 ( 46 ) @ 10:10:00 AM 139 / 91 ( 112 ) @ 10:15:00 AM 142 / 84 ( 111 ) @ 10:26:00 AM 143 / 84 ( 111 ) @ 10:26:00 AM LV : 135 / 4 / 10 @ 10:25:00 AM 142 / -10 / 17 @ 10:26:00 AM 142 / -11 / 17 @ 10:26:00 AM Valves Phase:DefaultPhase AV : 2.0 @ 9:34:03 AM AV Mean Gradient: 0.0 @ 9:34:03 AM Clinical Evaluation EBL: 5mL-10mL Procedural Details Procedure Consent Obtained. Pre-Procedure Time Out. Identified patient by full name and date of as verbalized by the patient/guarantor. Does the consent match the physician's order: Yes. Accurate & Complete Informed Consent: Yes. Inpatient/Outpatient History & Physical on Chart: Yes. If H&P is completed, is and addenduem needed: No; If yes, is the addendum complete: N/A. Visualize and Verify Site with Patient/Guarantor: N/A. Relevant Radiology Images available: No. The risks, benefits, and alternatives of sedation and/or procedure were discussed by physician. The patient agrees to continue. Procedure started. [facility] Clinical Fraility Score: 3: Managing Well. Fly Tier Indications: Worsening Angina. Chest Pain Symptom Assessment: Typical Angina Symptoms. Correct patient, site and procedure confirmed by cath team. Current diagnosis: Chest Pain. PERRLA. Strong, equal hand liaison inspection laboratory assistant bilaterally. Lungs clear x 5 lobes. IV Site on Arrival: 20 gauge in the right anticubital. IV Fluids: 0.9% NaCl at KVO. 0 mL infused prior to cathead worker. Pre Procedural Pulses: bilateral radial was 2+. Pre Procedural Pulses: bilateral posterior tibial was Doppled. Pre Procedural Pulses: bilateral dorsalis pedis was Doppled. Oxygen started at 2liters/min via nasal canula. right radial was prepped with chloroprep then draped in the usual sterile fashion. right groin was prepped with chloroprep then draped in the usual sterile fashion. Physician notified. Baseline sample Acquired. HR: 76 BPM. Physician arrived. Admit Source: Out Patient. Physician scrubbed in. Immediate Pre-Procedure Time Out. Correct Patient: Yes; Correct Procedure: Yes; Correct Site: No; Correct Patient Position: Yes; Correct Supplies: Yes; Dried Flammable Prep: Yes; Blood Products Available: No;. Lidocaine 1% infiltrated to the right radial. Arterial access obtained. A 5 rwandan TIG catheter in over wire. AP pads applied. Multiple views taken of left coronary artery. Catheter removed over the exchange wire. A 5 rwandan Yoshi catheter in over wire. Multiple views taken of left coronary artery. Catheter redirected to the RCA. Multiple views taken of right coronary artery. Catheter removed over the exchange wire. A 5 rwandan Angled Pig catheter in over wire. EDP Sample taken: LV 135/4,10; HR: 101 BPM; SpO2: 99%. LV gram performed in LINDER @ 10 mL/second for a total of 30 mL. EDP Sample taken: LV 142/-11,17; HR: 89 BPM; SpO2: 99%. Pullback taken: LV 142/-12,17; AO 142/84(111); Mean: 0mmHg, Peak to Peak: 2mmHg, SEP: 22sec/min; HR: 97 BPM; SpO2: 99%. Catheter removed over the exchange wire. Physician scrubbed out. Post Procedure: Pulses reassessed and unchanged. PERRLA. Strong, equal hand liaison inspection laboratory assistant bilaterally. No VTE prophylaxis required. Medication's Wasted: Lidocaine 1% = 18 mL. Medication's Wasted: Nitro = 49.8 mg. Medication's Wasted: Heparin = 1000 units. Medication's Wasted: Other = Benadryl 25 mg. Total IV fluids: 50 mL. Post-op diagnosis: Multi-vessel CAD including critical ostial Left main stenosis and RCA stenosis. Complications: None. Estimated blood loss: 5mL-10mL. Responsiveness - Normal response to verbal stimuli; alert and oriented, PERRLA. Airway - Unaffected, no intervention required; spontaneous ventilation. Circulation: W/N/L, pulses unchanged. Nausea/Vomiting: No. Procedure completed. Patient transferred by wheelchair to CPRU. Vital chart was stopped. Access Site Site: Right Radial artery Sheath Size: 6 Fr Hemostasis Success: Unsuccessful Procedure Medications Start: 8:36 AM Stop: 8:36 AM Medication: Versed Amount: 1 mg Route: I.V. Start: 8:36 AM Stop: 8:36 AM Medication: Fentanyl Amount: 50 mcg Route: I.V. Start: 8:57 AM Stop: 8:57 AM Medication: Versed Amount: 1 mg Route: I.V. Start: 9:00 AM Stop: 9:00 AM Medication: Fentanyl Amount: 50 mcg Route: I.V. Start: 9:02 AM Stop: 9:02 AM Medication: Diphendryamine Amount: 25 mg Route: I.V. Start: 9:03 AM Stop: 9:03 AM Medication: Nitrogylcerin Amount: 200 mcg Route: I.A. Start: 9:07 AM Stop: 9:07 AM Medication: Heparin Amount: 5000 units Route: I.V. Start: 9:16 AM Stop: 9:16 AM Medication: Versed Amount: 1 mg Route: I.V. Start: 9:18 AM Stop: 9:18 AM Medication: Versed Amount: 1 mg Route: I.V. I, the attending physician, have reviewed and verified all procedure medications. Yes, all medications given per verbal order History/Risk Factors Hypertension: Yes Dyslipidemia: No Peripheral Arterial Disease (PAD): No Myocardial Infarction (PR): No Obesity: No Renal Disease: No Tobacco Use: Current/Recent(w/in 1 year) Prior Interventions PCI: No CABG: No Valve Surgery: No Report Signatures Finalized by Ryne Salvador MD on 07/18/2025 10:15 AM
--- NOTE | 2025-07-18 08:53 | P.HPUD_ITS ---
Surgery/Procedure H&P Update DATE OF PROCEDURE: July 18, 2025 DATE H&P PERFORMED: 07/12/25 H&P UPDATE INFORMATION: I have reviewed H&P completed within last 30 days, I have examined patient prior to procedure and No changes to prior documentation CHANGES TO PREVIOUS DOCUMENTATION: Abnormal stress test unstable angina. 45-year-old female past medical history significant for continues tobacco abuse hypertension hyperlipidemia struggling with worsening of chest pain shortness of breath upon mild exertion as well as at rest which has increased in frequency and duration. Stress test EKG portion was abnormal. Initially there was concern regarding some blood in the urine or stool patient says occasionally she see it but not on a regular basis. She denies any more blood in stool she is tolerating Plavix well hemoglobin last was 13.0 she occasionally see urine blood but could be from urinary tract infection. Her major concerns are chest pain shortness of breath. It is the reason patient is here for left heart cath. PLANNED PROCEDURE: Operation Date: 07/18/25 08:30 Proposed Procedures p Cardiac Catheterization- LHC(Left) - Ryne Salvador MD PATIENT REASSESSED PRIOR TO SEDATION, WITH NO CHANGE NOTED: Yes PHYSICAL EXAM: alert, oriented x 3, clear to auscultation bilaterally, regular rate & rhythm and operative site marked AIRWAY EVAL/ANESTHESIA PLAN: ASA II, Risks, benefits & alternatives of sedation and/or procedure discussed and Patient agrees to continue as planned ADDITIONAL INFORMATION: Patient has been explained all risk-benefit and alternative for the procedure. Patient understand 2% risk of stroke major bleed. Patient understand 5% risk of minor bleeding oozing infection hematoma contrast-induced nephropathy. Patient understand 5% risk of urgent or emergent vascular bypass surgery. P atient agrees to it and would like to proceed with it.
== END 2025-07-18 13:16 | disposition home or self-care (01) ==
PROVIDERS: PCP Nurse Practitioner Family; Visit Provider Internal Medicine Cardiovascular Disease
DX: I25.118 Atherosclerotic heart disease of native coronary artery with other forms of angina pectoris (principal); I10 Essential (primary) hypertension; E03.9 Hypothyroidism, unspecified; F41.8 Other specified anxiety disorders; Z82.49 Family history of ischemic heart disease and other diseases of the circulatory system; F17.210 Nicotine dependence, cigarettes, uncomplicated
CPT/HCPCS: 36415; 93458; 99152; 99153; C1769; C1887; C1894; J1200; J1644; J2250; J3010; J3490; J7030; J9999; Q0163; Q9967

== ENCOUNTER 2025-07-22 18:33 | Emergency (ER) | payer MEDICAID, SELFPAY ==
--- OUTSIDE RECORDS SUMMARY | 2025-03-22 05:00 | XMS_ITS ---
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 Name Role Phone Lo Moss Primary Care Provider [phone] LO MOSS Unavailable Unavailable REASON FOR VISIT sick Encounters Encounter Location Date Provider Diagnosis [facility] Office [address] [place] [phone] 03/22/2025 Lo Moss Plan Of Treatment No Information Progress Notes * Celina REAGAN RDOB:[birth year] (45 yo F)Acc No.[id number]:03/22/2025 Progress Notes Patient: Angelica Celina mclean Provider: Catalino Moss APRN :1980 A ge:44 Y S ex:Female Date:03/22/2025 Address:[address] [place], [place] [id number] Subjective: * Chief Complaints: * S ick Plan: * Preventive Medicine: Screenings: B REAST CANCER SCREENING: Prior breast cancer screening: h as been many years C ERVICAL CANCER SCREENING: Date of the last PAP Smear : a ge 20 was last pap C OLORECTAL CANCER SCREENING: Colorectal screening: h as never occurred D EPRESSION SCREENING: Date of most recent screenin 11/22/2024 The patient denies: a nxiety, depressed mood, difficulty sleeping, lack of energy, lack of interest in things that were enjoyable, poor appetite, sadness, thoughts of harming him/herself, thought of harming someone else, trouble concentrating, weight gain, weight loss, any depressive symptoms at this time Suicidal ideation: h as never been expressed/considered Homicidal ideation: h as never been expressed/considered Care Plan Details* * Electronic signature of Henry Moss APN on 07/22/2025 at 06:39 PM CDT Sign off status: Pending * Provider: Catalino Moss APRN Date: 0 03/22/2025 Generated for Laura hancock/Juan Luis/Christi on: 06:39 PM CDT
--- OUTSIDE RECORDS SUMMARY | 2025-07-19 10:20 | XMS_ITS ---
Author Organization [facility] Address [address] [place] [address] Care Team Providers Care Medical Economics Consultant Name Role Phone Lo Moss Primary Care Provider LO MOSS Unavailable Unavailable Allergies No Known Allergies REASON FOR VISIT Headache Medications Medication SIG (Take, Route, Frequency, Duration) Notes Start Date End Date Status traZODone HCl 50 MG Tablet TAKE 1 TO 2 TABLETS BY MOUTH AT BEDTIME NEEDED; Duration: 30 Active Levothyroxine Sodium 100 MCG Tablet TAKE 1 TABLET BY MOUTH ONCE DAILY IN THE MORNING ON AN EMPTY STOMACH; Duration: 30 Active Cetirizine HCl 10 MG Tablet 1 tablet Orally Once a day; Duration: 30 days 06/26/2025 Active ALPRAZolam 1 MG Tablet 1 tablet as needed Orally Twice a day; Duration: 30 days 06/08/2025 Active Ezetimibe 10 MG Tablet Take 1 tablet by mouth once daily; Duration: 30 Active Cyclobenzaprine HCl 10 MG Tablet TAKE 1 TABLET BY MOUTH TWICE DAILY NEEDED FOR 30 DAYS; Duration: 30 Active DULoxetine HCl 60 MG Capsule Delayed Release Particles Take 1 capsule by mouth twice daily; Duration: 30 Active Albuterol Sulfate HFA 108 (90 Base) MCG/ACT Aerosol Solution 1 puff as needed Inhalation every 4 hrs 01/30/2025 Active Albuterol Sulfate HFA 108 (90 Base) MCG/ACT Aerosol Solution 2 puff as needed Inhalation every 4 hrs 01/07/2024 Active DULoxetine HCl 30 MG Capsule Delayed Release Particles 1 capsule Orally Twice a day; Duration: 30 days In additional to the 60 mg Twice for a total of 90 mg twice. 10/29/2023 Active Fish Oil 500 MG Capsule 1 capsule Orally daily Active Carafate 1 GM Tablet 1 tablet on an empty stomach Orally three times a day Not-Taking Diclofenac Sodium 75 MG Tablet Delayed Release Take 1 tablet by mouth twice daily as needed; Duration: 30 days Active Nitroglycerin 0.4 MG Tablet Sublingual as directed Sublingual; Duration: 30 days Active Metoprolol Tartrate 25 MG Tablet Take 1 tablet by mouth once daily with food; Duration: 30 Active Omeprazole 20 MG Capsule Delayed Release 1 capsule 30 minutes before morning meal Orally Once a day Not-Taking Lipitor 80 MG Tablet 1 tablet Orally Once a day; Duration: 30 days Not-Taking Isosorbide Mononitrate ER 30 MG Tablet Extended Release 24 Hour 1 tablet in the morning Orally Once a day Not-Taking Triamcinolone Acetonide 0.1 % Cream 1 application as needed Externally twice a day 06/26/2025 Active Social History Tobacco Use: Social History Observation Description Date Details (start date - stop date) Current Smoker NA - NA Social History Tobacco Use: Social Info Question Answer Notes xTobacco Use/Smoking Are you a current smoker How often do you smoke cigarettes? every day Section Notes: 05/25/23 PHQ9 11/22/24 PHQ9 Vital Signs Temperature 97.4 degrees Fahrenheit 07/19/20 25 Blood pressure systolic 118 mm Hg 07/19/20 25 Blood pressure diastolic 76 mm Hg 025 Heart Rate 89 /min 07/19/2025 Respiratory Rate 20 /min 07/19/2025 Height 62 in 07/19/2025 Weight 117 lbs 07/19/2025 BMI 21.4 kg/m2 07/19/2025 Oximetry 99 % 07/19/2025 Height-cm 157.48 cm 07/19/2025 Weight-kg 53.07 kg 07/19/2025 Encounters Encounter Location Date Provider Diagnosis [facility] Office [address] [phone] 07/19/2025 Lo Moss Headache R51.9 Assessments Encounter Date Diagnosis (ICD Code) Assessment Notes Treatment Notes Treatment Clinical Notes Section Notes 07/19/2025 Headache (ICD-10 - R51.9) Toradol injection given. RTC if no improvement with treatment. Questions asked and answered; discharged to home. Plan Of Treatment Treatment Notes Assessment Notes Headache Toradol injection gi stevie. RTC if no improvement with treatment. Questions asked and answered; discharged to home. Next Appt Details Follow Up: prn, Reason: Medications Administered Medication Instructions Date of Administration Dosage Notes Ketorolac Tromethamine 07/19/2025 60 mg nd [id number] tient tolerated well. History and Physical Notes * HPI (History of Present Illness) Category Sub-Category Detail Notes Category Not es Provider Note To clinic toda y with complaints of headache. Denies N/V, dizziness, gait disturbance. She has long history of headaches. Examination Category Sub-Category Detail Notes Category Not es General Examination GENERAL APPEARANCE: alert, w ell hydrated, in no distress EYES: PERRL; normal conjun ctiva NECK/THYROID: neck supple, full ra nge of motion HEART: regular rate and rhy thm LUNGS: clear to auscultatio n bilaterally NEUROLOGIC: cognitive exam john l SKIN: warm and dry , no ra shes EXTREMITIES: no edema MUSCULOSKELETAL: normal gait PSYCH: judgement and insigh t good , thought content without suicidal ideation, delusions , thought process logical, goal directed Progress Notes * Celina REAGAN RDOB:[birth year] (45 yo F)Acc No.[id number]:07/19/2025 Progress Notes Patient: Celina Fernando Provider: Catalino Moss APRN :1980 A ge:45 Y S ex:Female Date:07/19/2025 Address:[address] [place], [place] [id number] Check In:02:55 PM CSTCheck O ut:03:28 PM 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 Denies N/V, dizziness, gait disturbance. She has long history of headaches. * ROS: G eneral - Multi System: Constitutional D enies fever, chills, body aches, change in appetite, or problems with sleep. C ardiovascular D enies any recent chest pain, irregular heart beats, syncope, or shortness of breath. R espiratory D enies any shortness of breath, cough, or hemoptysis.. G astrointestinal D enies a bdominal pain, r ecent change in bowel habits. M usculoskeletal D enies any joint pain or swelling, no recent trauma.. I ntegumentary D enies any rashes, bruising, or skin changes.. P sychiatric D enies depression, anxiety, or suicidal thoughts/actions.. * Medical History: Hypertension Hyperlipidemia Medical History Verified * Surgical History: hysterectomy age 19 Surgical History verified. * Hospitalization/Major Diagno stic Procedure: Denies Past Hospitalization. * Family History: F ather: alive. M other: alive. F amily History Verified.. * Social History: T obacco Use: x Tobacco Use/Smoking A re you a c urrent smoker H ow often do you smoke cigarettes? e very day S ocial History Verified. PHQ9 11/22/24 PHQ9. * Medications: T akingFish Oil 500 MG Capsule 1 capsule Orally daily Metoprolol Tartrate 25 MG Tablet Take 1 tablet by mouth once daily with food Nitroglycerin 0.4 MG Tablet Sublingual as directed Sublingual Diclofenac Sodium 75 MG Tablet Delayed Release Take 1 tablet by mouth twice daily as needed DULoxetine HCl 30 MG Capsule Delayed Release Particles 1 capsule Orally Twice a day , Notes to Pharmacist: In additional to the 60 mg Twice for a total of 90 mg twice.Albuterol Sulfate HFA 108 (90 Base) MCG/ACT Aerosol Solution 2 puff as needed Inhalation every 4 hrs Albuterol Sulfate HFA 108 (90 Base) MCG/ACT Aerosol Solution 1 puff as needed Inhalation every 4 hrs DULoxetine HCl 60 MG Capsule Delayed Release Particles Take 1 capsule by mouth twice daily Cyclobenzaprine HCl 10 MG Tablet TAKE 1 TABLET BY MOUTH TWICE DAILY NEEDED FOR 30 DAYS Levothyroxine Sodium 100 MCG Tablet TAKE 1 TABLET BY MOUTH ONCE DAILY IN THE MORNING ON AN EMPTY STOMACH traZODone HCl 50 MG Tablet TAKE 1 TO 2 TABLETS BY MOUTH AT BEDTIME NEEDED Ezetimibe 10 MG Tablet Take 1 tablet by mouth once daily ALPRAZolam 1 MG Tablet 1 tablet as needed Orally Twice a day Cetirizine HCl 10 MG Tablet 1 tablet Orally Once a day Triamcinolone Acetonide 0.1 % Cream 1 application as needed Externally twice a day Taking Fish Oil 500 MG Capsule 1 capsule Orally daily Taking Metoprolol Tartrate 25 MG Tablet Take 1 tablet by mouth once daily with food Taking Nitroglycerin 0.4 MG Tablet Sublingual as directed Sublingual Taking Diclofenac Sodium 75 MG Tablet Delayed Release Take 1 tablet by mouth twice daily as needed Taking DULoxetine HCl 30 MG Capsule Delayed Release Particles 1 capsule Orally Twice a day , Notes to Pharmacist: In additional to the 60 mg Twice for a total of 90 mg twice.Taking Albuterol Sulfate HFA 108 (90 Base) MCG/ACT Aerosol Solution 2 puff as needed Inhalation every 4 hrs Taking Albuterol Sulfate HFA 108 (90 Base) MCG/ACT Aerosol Solution 1 puff as needed Inhalation every 4 hrs Taking DULoxetine HCl 60 MG Capsule Delayed Release Particles Take 1 capsule by mouth twice daily Taking Cyclobenzaprine HCl 10 MG Tablet TAKE 1 TABLET BY MOUTH TWICE DAILY NEEDED FOR 30 DAYS Taking Levothyroxine Sodium 100 MCG Tablet TAKE 1 TABLET BY MOUTH ONCE DAILY IN THE MORNING ON AN EMPTY STOMACH Taking traZODone HCl 50 MG Tablet TAKE 1 TO 2 TABLETS BY MOUTH AT BEDTIME NEEDED Taking Ezetimibe 10 MG Tablet Take 1 tablet by mouth once daily Taking ALPRAZolam 1 MG Tablet 1 tablet as needed Orally Twice a day Taking Cetirizine HCl 10 MG Tablet 1 tablet Orally Once a day Taking Triamcinolone Acetonide 0.1 % Cream 1 application as needed Externally twice a day Not-TakingIsosorbide Mononitrate ER 30 MG Tablet Extended Release 24 Hour 1 tablet in the morning Orally Once a day Lipitor 80 MG Tablet 1 tablet Orally Once a day Omeprazole 20 MG Capsule Delayed Release 1 capsule 30 minutes before morning meal Orally Once a day Carafate 1 GM Tablet 1 tablet on an empty stomach Orally three times a day Medication List reviewed and reconciled with the patientNot-Taking Isosorbide Mononitrate ER 30 MG Tablet Extended Release 24 Hour 1 tablet in the morning Orally Once a day Not- Taking Lipitor 80 MG Tablet 1 tablet Orally Once a day Not-Taking Omeprazole 20 MG Capsule Delayed Release 1 capsule 30 minutes before morning meal Orally Once a day Not- Taking Carafate 1 GM Tablet 1 tablet on an empty stomach Orally three times a day Medication List reviewed and reconciled with the patient * Allergies: N .K.D.A.yesAllergies Verified. Objective: * Vitals: H t: 62 in, Wt:117lbs, Wt-k.07 kg, BMI:21.4Index, Temp:97.4F, BP:118/76mm Hg, HR:89/min, RR:20/min, Oxygen sat %:99%, Pain scale: 0 1-10, Ht-cm: 157.48 cm. * Examination: G eneral Examination: GENERAL APPEARANCE: a lert, well hydrated, in no distress.? EYES: P ERRL; normal conjunctiva. NECK/THYROID: n priscilla supple, full range of motion. SKIN: w arm and dry , no rashes. HEART: r egular rate and rhythm. LUNGS: c lear to auscultation bilaterally. MUSCULOSKELETAL: n ormal gait. EXTREMITIES: n o edema. NEUROLOGIC: c ognitive exam normal. PSYCH: j udgement and insight good , thought content without suicidal ideation, delusions , thought process logical, goal directed. Assessment: * Assessment: 1. H eadache - R51.9 (Primary) Plan: * Treatment: * Therapeutic Injections: KetorolacTrtomethamine/Toradol : 60 mg (Dose No:1) (Route: Intramuscular) given by Melva Azul on right hip (Headache) * Procedure Codes: 3 078F DIAST BP < 80 MM [id number] SYST BP LT 130 MM [id number] KetorolacTrtomethamine/[id number] THER/PROPH/DIAG INJ, SC/IM * Follow Up: p rn Billing Information: * Visit Code: 27849 Office Visit, Est Pt., Level 3. * Procedure Codes: 3078F DIAST BP < 80 MM HG. 3074F SYST BP LT 130 MM HG. [id number] KetorolacTrtomethamine/Toradol. 30307 THER/PROPH/DIAG INJ, SC/IM. Care Plan Details* * Sign off status: Completed true * Provider: Catalino Moss APRN Date: Generated for Laura hancock/Juan Luis/Christi on: 06:39 PM CDT
[2025-07-22] VITALS (11 sets, daily range): BP systolic 119–154; BP diastolic 78–95; PULSE 91–104; RESP 17–22; TEMP 36.6; O2SAT 93–100; BMI 20.4
--- OUTSIDE RECORDS SUMMARY | 2025-07-22 18:39 | XMS_ITS | Encounter Summary ---
Author Organization [facility] Address [address] [place] [address] Care Team Providers Care Venipuncturist Name Role Phone Chele Arevalo Primary Care Provider + [phone] Encounter Details Date Type Department Care Team (Latest Contact Info) Description 02/27/2004 Outpatient Historical [facility] End[facility] Michael [address] [place] [id number] Jae Avendaño MD [address] [facility] [address] [place] [address] ABDOMINAL PAIN UNSPEC SITE (Primary Dx) Social History Tobacco Use Types Packs/Day Years Used Date Smoking Tobacco: Never Assessed Comments Unknown Sex and Gender Information Value Date Recorded Sex Assigned at Not on file 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
--- OUTSIDE RECORDS SUMMARY | 2025-07-22 18:39 | XMS_ITS | Encounter Summary ---
Author Organization [facility] Address [address] [place] [address] Care Team Providers Care Piccoloist Name Role Phone Chele Arevalo Primary Care Provider + [phone] Encounter Details Date Type Department Care Team (Latest Contact Info) Description 02/19/2004 Outpatient Historical [facility] Gastroenterology- [place] [id number] [facility] [address] [place] [address] Jae Avendaño MD [address] [facility] [address] [place] [phone] NAUSEA WITH VOMITING (Primary Dx); ABDOMINAL PAIN EPIGASTRIC Social History Tobacco Use Types Packs/Day Years Used Date Smoking Tobacco: Never Assessed Comments Unknown Sex and Gender Information Value Date Recorded Sex Assigned at Not on file 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
--- OUTSIDE RECORDS SUMMARY | 2025-07-22 18:39 | XMS_ITS | Encounter Summary ---
Author Organization [facility] Address [address] [place] [address] Care Team Providers Care Traffic Enumerator Name Role Phone Chele Arevalo Primary Care Provider + [phone] Encounter Details Date Type Department Care Team (Latest Contact Info) Description 02/27/2004 Outpatient Historical [facility] [address] [facility] [address] [place] [address] Jae Avendaño MD 1029 [facility] [address] [place] [phone] ABDOMINAL PAIN UNSPEC SITE (Primary Dx) Social History Tobacco Use Types Packs/Day Years Used Date Smoking Tobacco: Never Assessed Comments Unknown Sex and Gender Information Value Date Recorded Sex Assigned at Not on file 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
--- OUTSIDE RECORDS SUMMARY | 2025-07-22 18:39 | XMS_ITS | Encounter Summary ---
Author Organization [facility] Address [address] [place] [address] Care Team Providers Care Sleeve Maker Name Role Phone Chele Arevalo Primary Care Provider + [phone] Encounter Details Date Type Department Care Team (Latest Contact Info) Description 01/19/2004 Outpatient Historical [address] [address] Sumi Walls MD [address] [place] [address] HYPOTHYROIDISM NOS (Primary Dx); VOMITING ALONE; ANOREXIA Social History Tobacco Use Types Packs/Day Years Used Date Smoking Tobacco: Never Assessed Comments Unknown Sex and Gender Information Value Date Recorded Sex Assigned at Not on file Legal Sex Female 4:05 AM HOSPITAL FELLOW Gender Identity Not on file Sexual Orientation Not on file documented as of this encounter Plan of Treatment Not on file documented as of this encounter Visit Diagnoses Diagnosis Unspecified hypothyroidism- Primary Vomiting alone Anorexia documented in this encounter Care Teams Sleeve Maker Relationship Specialty Start Date End Date Chele Arevalo PA PCP - General Physician Field Kiln Burner 01/16/13 documented as of this encounter
--- OUTSIDE RECORDS SUMMARY | 2025-07-22 18:39 | XMS_ITS | Encounter Summary ---
Author Organization [facility] Address [address] [place] [address] Care Team Providers Care Ingot Supervisor Name Role Phone Chele Arevalo Primary Care Provider + [phone] Encounter Details Date Type Department Care Team (Latest Contact Info) Description 02/19/2004 Outpatient Historical [facility] Endoscopy [place] [address] [place] [phone] Jae Avendaño MD 1029 [facility] [address] [place] [address] ABDOMINAL PAIN EPIGASTRIC (Primary Dx) Social History Tobacco Use Types Packs/Day Years Used Date Smoking Tobacco: Never Assessed Comments Unknown Sex and Gender Information Value Date Recorded Sex Assigned at Not on file Legal Sex Female 4:05 AM DATA SECURITY ADMINISTRATOR Gender Identity Not on file Sexual Orientation Not on file documented as of this encounter Plan of Treatment Not on file documented as of this encounter Visit Diagnoses Diagnosis Abdominal pain, epigastric- Primary documented in this encounter Care Teams Ingot Supervisor Relationship Specialty Start Date End Date Chele Arevalo PA PCP - General Physician Fashion Merchandiser 01/16/13 documented as of this encounter
--- OUTSIDE RECORDS SUMMARY | 2025-07-22 18:39 | XMS_ITS | Encounter Summary ---
Author Organization [facility] Address [address] [place] [address] Care Team Providers Care Airport Operations Specialist Name Role Phone Chele Arevalo Primary Care Provider + [phone] Encounter Details Date Type Department Care Team (Latest Contact Info) Description 01/03/2004 Outpatient Historical [facility] Oral and Maxillo Surgery[address] [place] [address] Chele Laura, PhD NO ADDRESS ON FILE UNSPEC DENTAL CARIES (Primary Dx) Social History Tobacco Use Types Packs/Day Years Used Date Smoking Tobacco: Never Assessed Comments Unknown Sex and Gender Information Value Date Recorded Sex Assigned at Not on file Legal Sex Female 4:05 AM [facility] Gender Identity Not on file Sexual Orientation Not on file documented as of this encounter Plan of Treatment Not on file documented as of this encounter Visit Diagnoses Diagnosis Unspecified dental caries- Primary documented in this encounter Care Teams Airport Operations Specialist Relationship Specialty Start Date End Date Chele Arevalo PA PCP - General Physician Drinking Water Technician 01/16/13 documented as of this encounter
--- OUTSIDE RECORDS SUMMARY | 2025-07-22 18:39 | XMS_ITS | Encounter Summary ---
Author Organization [facility] Address [address] [place] [address] Care Team Providers Care Patch Driller Name Role Phone Chele Arevalo Primary Care Provider + [phone] Encounter Details Date Type Department Care Team (Latest Contact Info) Description 02/20/2004 Outpatient Historical [facility] Medicine [address] [phone] Madi Calloway MD [address] [address] ESOPHAGEAL REFLUX (Primary Dx); ABDOMINAL PAIN UNSPEC SITE Social History Tobacco Use Types Packs/Day Years Used Date Smoking Tobacco: Never Assessed Comments Unknown Sex and Gender Information Value Date Recorded Sex Assigned at Not on file Legal Sex Female 4:05 AM PEDIATRIC UROLOGIST Gender Identity Not on file Sexual Orientation Not on file documented as of this encounter Plan of Treatment Not on file documented as of this encounter Visit Diagnoses Diagnosis Esophageal reflux- Primary Abdominal pain, unspecified site documented in this encounter Care Teams Patch Driller Relationship Specialty Start Date End Date Chele Arevalo PA PCP - General Physician Opto Mechanical Technician 01/16/13 documented as of this encounter
--- OUTSIDE RECORDS SUMMARY | 2025-07-22 18:39 | XMS_ITS | Encounter Summary ---
Author Organization [facility] Address [address] [place] [address] Care Team Providers Care [place] Intern Name Role Phone Chele Arevalo Primary Care Provider + [phone] Encounter Details Date Type Department Care Team (Latest Contact Info) Description 01/03/2004 Outpatient Historical [facility] [address] [place] [address] [place] [phone] Chele Laura, PhD NO ADDRESS ON FILE UNSPEC DENTAL CARIES (Primary Dx) Social History Tobacco Use Types Packs/Day Years Used Date Smoking Tobacco: Never Assessed Comments Unknown Sex and Gender Information Value Date Recorded Sex Assigned at Not on file Legal Sex Female 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
--- OUTSIDE RECORDS SUMMARY | 2025-07-22 18:39 | XMS_ITS | Encounter Summary ---
Author Organization [facility] Address [address] [place] [address] Care Team Providers Care Psychologist Engineering Name Role Phone Chele Arevalo Primary Care Provider + [phone] Encounter Details Date Type Department Care Team (Latest Contact Info) Description 11/08/2003 Outpatient Historical [facility] Medicine [address] [phone] Madi Calloway MD [address] [address] ABDOMINAL PAIN UNSPEC SITE (Primary Dx); ANEMIA NOS Social History Tobacco Use Types Packs/Day Years Used Date Smoking Tobacco: Never Assessed Comments Unknown Sex and Gender Information Value Date Recorded Sex Assigned at Not on file Legal Sex Female 4:05 AM PIGMENT PROCESSOR Gender Identity Not on file Sexual Orientation Not on file documented as of this encounter Plan of Treatment Not on file documented as of this encounter Visit Diagnoses Diagnosis Abdominal pain, unspecified site- Primary Anemia, unspecified documented in this encounter Care Teams Psychologist Engineering Relationship Specialty Start Date End Date Chele Arevalo PA PCP - General Physician Repair Armature Winder Helper 01/16/13 documented as of this encounter
--- OUTSIDE RECORDS SUMMARY | 2025-07-22 18:39 | XMS_ITS | Encounter Summary ---
Author Organization [facility] Address [address] [place] [address] Care Team Providers Care Bitumen Plant Operator Name Role Phone Chele Arevalo Primary Care Provider + [phone] Encounter Details Date Type Department Care Team (Latest Contact Info) Description 01/08/2004 Outpatient Historical [facility] Oral and Maxillo Surgery[address] [place] [address] Chele Laura, PhD NO ADDRESS ON FILE SURGERY FOLLOWUP, UNSPEC (Primary Dx) Social History Tobacco Use Types Packs/Day Years Used Date Smoking Tobacco: Never Assessed Comments Unknown Sex and Gender Information Value Date Recorded Sex Assigned at Not on file Legal Sex Female 4:05 AM GROCERY STORE COURTESY CLERK Gender Identity Not on file Sexual Orientation Not on file documented as of this encounter Plan of Treatment Not on file documented as of this encounter Visit Diagnoses Diagnosis Follow-up examination, following unspecified surgery- Primary documented in this encounter Care Teams Bitumen Plant Operator Relationship Specialty Start Date End Date Chele Arevalo PA PCP - General Physician Fruit And Vegetable Parer 01/16/13 documented as of this encounter
--- OUTSIDE RECORDS SUMMARY | 2025-07-22 18:39 | XMS_ITS | Encounter Summary ---
Author Organization [facility] Address [address] [place] [address] Care Team Providers Care Telephone Triage Nurse Name Role Phone Chele Arevalo Primary Care Provider + [phone] Encounter Details Date Type Department Care Team (Latest Contact Info) Description 12/27/2003 Outpatient Historical [facility] Oral and Maxillo Surgery[address] [place] [address] Chele Laura, PhD NO ADDRESS ON FILE UNSPEC DENTAL CARIES (Primary Dx) Social History Tobacco Use Types Packs/Day Years Used Date Smoking Tobacco: Never Assessed Comments Unknown Sex and Gender Information Value Date Recorded Sex Assigned at Not on file Legal Sex Female 4:05 AM SAP DEVELOPER Gender Identity Not on file Sexual Orientation Not on file documented as of this encounter Plan of Treatment Not on file documented as of this encounter Visit Diagnoses Diagnosis Unspecified dental caries- Primary documented in this encounter Care Teams Telephone Triage Nurse Relationship Specialty Start Date End Date Chele Arevalo PA PCP - General Physician Cutter First 01/16/13 documented as of this encounter
--- OUTSIDE RECORDS SUMMARY | 2025-07-22 18:39 | XMS_ITS | Encounter Summary ---
Author Organization [facility] Address [address] [place] [address] Care Team Providers Care Tetryl Wringer Operator Name Role Phone Chele Arevalo Primary Care Provider + [phone] Encounter Details Date Type Department Care Team (Latest Contact Info) Description 03/04/2004 Outpatient Historical [facility] Medicine [address] [phone] Celsa Dunham MD [address] [place] [address] DERMATITIS NOS (Primary Dx); HYPOTHYROIDISM NOS Social History Tobacco Use Types Packs/Day Years Used Date Smoking Tobacco: Never Assessed Comments Unknown Sex and Gender Information Value Date Recorded Sex Assigned at Not on file Legal Sex Female 4:05 AM ENVIRONMENTAL STUDIES FACULTY MEMBER Gender Identity Not on file Sexual Orientation Not on file documented as of this encounter Plan of Treatment Not on file documented as of this encounter Visit Diagnoses Diagnosis Contact dermatitis and other eczema, due to unspecified cause- Primary Unspecified hypothyroidism documented in this encounter Care Teams Tetryl Wringer Operator Relationship Specialty Start Date End Date Chele Arevalo PA PCP - General Physician Shipyard Painter Apprentice 01/16/13 documented as of this encounter
--- OUTSIDE RECORDS SUMMARY | 2025-07-22 18:39 | XMS_ITS | Encounter Summary ---
Author Organization [facility] Address [address] [place] [address] Care Team Providers Care Forklift Operator Name Role Phone Chele Arevalo Primary Care Provider + [phone] Encounter Details Date Type Department Care Team (Latest Contact Info) Description 01/22/2004 Outpatient Historical [address] [address] Sumi Walls MD [address] [place] [address] HYPOTHYROIDISM NOS (Primary Dx); NAUSEA WITH VOMITING Social History Tobacco Use Types Packs/Day Years Used Date Smoking Tobacco: Never Assessed Comments Unknown Sex and Gender Information Value Date Recorded Sex Assigned at Not on file Legal Sex Female 4:05 AM ALL ROUND LOGGER Gender Identity Not on file Sexual Orientation Not on file documented as of this encounter Plan of Treatment Not on file documented as of this encounter Visit Diagnoses Diagnosis Unspecified hypothyroidism- Primary Nausea with vomiting documented in this encounter Care Teams Forklift Operator Relationship Specialty Start Date End Date Chele Arevalo PA PCP - General Physician Dog Daycare Provider 01/16/13 documented as of this encounter
--- OUTSIDE RECORDS SUMMARY | 2025-07-22 18:39 | XMS_ITS | Encounter Summary ---
Author Organization [facility] Address [address] [place] [address] Care Team Providers Care Lasting Room Supervisor Name Role Phone Chele Arevalo Primary Care Provider + [phone] Encounter Details Date Type Department Care Team (Latest Contact Info) Description 02/12/2004 Outpatient Historical [address] [address] Sumi Walls MD [address] [place] [address] ABDOMINAL PAIN UNSPEC SITE (Primary Dx); STOMACH FUNCTION DIS NEC Social History Tobacco Use Types Packs/Day Years Used Date Smoking Tobacco: Never Assessed Comments Unknown Sex and Gender Information Value Date Recorded Sex Assigned at Not on file Legal Sex Female 4:05 AM FAITH DOCTOR Gender Identity Not on file Sexual Orientation Not on file documented as of this encounter Plan of Treatment Not on file documented as of this encounter Visit Diagnoses Diagnosis Abdominal pain, unspecified site- Primary Dyspepsia and other specified disorders of function of stomach documented in this encounter Care Teams Lasting Room Supervisor Relationship Specialty Start Date End Date Chele Arevalo PA PCP - General Physician Slip Seat Coverer 01/16/13 documented as of this encounter
--- OUTSIDE RECORDS SUMMARY | 2025-07-22 18:39 | XMS_ITS | Encounter Summary ---
Author Organization [facility] Address [address] [place] [address] Care Team Providers Care Talent Manager Name Role Phone Chele Arevalo Primary Care Provider + [phone] Encounter Details Date Type Department Care Team (Latest Contact Info) Description 01/12/2004 Outpatient Historical [facility] Oral and Maxillo Surgery[address] [place] [address] Chele Laura, PhD NO ADDRESS ON FILE SURGERY FOLLOWUP, UNSPEC (Primary Dx) Social History Tobacco Use Types Packs/Day Years Used Date Smoking Tobacco: Never Assessed Comments Unknown Sex and Gender Information Value Date Recorded Sex Assigned at Not on file Legal Sex Female 4:05 AM TOWEL CABINET REPAIRER Gender Identity Not on file Sexual Orientation Not on file documented as of this encounter Plan of Treatment Not on file documented as of this encounter Visit Diagnoses Diagnosis Follow-up examination, following unspecified surgery- Primary documented in this encounter Care Teams Talent Manager Relationship Specialty Start Date End Date Chele Arevalo PA PCP - General Physician Smooth And Burr Worker Composites 01/16/13 documented as of this encounter
--- OUTSIDE RECORDS SUMMARY | 2025-07-22 18:39 | XMS_ITS | Clinical Summary ---
Author Organization [facility] Address [facility] [place] [address] Care Team Providers Care Emergency Room Orderly Name Role Phone Chele Arevalo Primary Care Provider + [phone] Allergies No known active allergies Medications neomycin-polymy olvin B-hydrocortison e (CORTISPORIN OTIC) 3.5-10,000-1 mg/mL-unit/mL-% otic suspension Administer 3 Drops in right ear 4 times daily. 10 mL 0 6 Active amoxicillin (AMOXIL) 500 mg capsule Take 1 Capsule (500 mg) by mouth 3 times daily. 24 Capsule None 6 Active traMADol (ULTRAM) 50 mg tablet Take 1 Tablet (50 mg) by mouth every 6 hours as needed for Pain, Moderate. 12 Tablet None 6 Active ibuprofen (MOTRIN) 200 mg tablet Take 4 Tablet (800 mg) by mouth every 8 hours as needed for Pain. 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 Primary hypothyroidism 08/16/2012 Depression 08/16/2012 Panic disorder 08/16/2012 Social History Tobacco Use Types Packs/Day Years Used Date Smoking Tobacco: Every Day Cigarettes Smokeless Tobacco: Never Tobacco Cessation:Ready to Q uit: No; Counseling Given: Yes Alcohol Use Standard Drinks/Week Comments No 0 (1 standard drink = 0.6 oz pur e alcohol) Comments No Sex and Gender Information Value Date Recorded Sex Assigned at Not on file Legal Sex Female 4:05 AM SHRIMP POND LABORER Gender Identity Not on file Sexual Orientation Not on file Occupation Industry Job Start Date Job End Date Not on file Not on file Not on file Not on file Last Filed Vital Signs Vital Sign Reading Time Taken Comments Blood Pressure 126/72 01/31/2016 3:22 PM CDT Pulse 100 10/16/2014 9:52 AM SHRIMP POND LABORER Temperature 36.4 C (97.6 F) 01/31/2016 3:22 PM CDT Respiratory Rate 14 01/31/2016 3:22 PM CDT Oxygen Saturation 98% 01/31/2016 3:22 PM CDT Inhaled Oxygen Concentration - - Weight 47.6 kg (105 lb) 01/31/2016 3:22 PM CDT Height 154.9 cm (5' 1 ) 01/31/2016 3:22 PM CDT Body Mass Index 19.84 01/31/2016 3:22 PM CDT Plan of Treatment Health Maintenance Due Date Last Done Comments DTAP/TDAP/TD VACCINES (1 - Tdap) 1997 HEPATITIS B VACCINES (1 of 3 - 19+ 3-dose series) 03/28 HPV/Cotest (21-29) 1999 CERVICAL CANCER SCREENING 2008 HPV/Cotest (30-65) 2008 PAP SMEAR 2008 BREAST CANCER SCREENING 2018 COLORECTAL SCREENING 2023 02/27/2004 Colorectal Cancer Screening 2023 FIT-DNA Q 3 years 2023 FIT/FOBT Q 1 year 2023 Flex Sig/CT Colonography Q 5 years 2023 INFLUENZA VACCINE (#1) 2025 Care Teams Emergency Room Orderly Relationship Specialty Start Date End Date Chele Arevalo PA PCP - General Physician Business Services Vice President 01/16/13
--- OUTSIDE RECORDS SUMMARY | 2025-07-22 18:39 | XMS_ITS | Encounter Summary ---
Author Organization [facility] Address [address] [place] [address] Care Team Providers Care Supervisor Paper Testing Name Role Phone Chele Arevalo Primary Care Provider + [phone] Encounter Details Date Type Department Care Team (Latest Contact Info) Description 11/06/[address] [facility] Medicine [address] [phone] Madi Calloway MD [address] [address] ABDOMINAL PAIN UNSPEC SITE (Primary Dx); GENERALIZED ANXIETY DIS; NEUROTIC DEPRESSION Social History Tobacco Use Types Packs/Day Years Used Date Smoking Tobacco: Never Assessed Comments Unknown Sex and Gender Information Value Date Recorded Sex Assigned at Not on file Legal Sex Female 4:05 AM HOISTING MACHINE OPERATOR Gender Identity Not on file Sexual Orientation Not on file documented as of this encounter Plan of Treatment Not on file documented as of this encounter Visit Diagnoses Diagnosis Abdominal pain, unspecified site- Primary Generalized anxiety disorder Dysthymic disorder documented in this encounter Care Teams Supervisor Paper Testing Relationship Specialty Start Date End Date Chele Arevalo PA PCP - General Physician Water Meter Mechanic 01/16/13 documented as of this encounter
--- OUTSIDE RECORDS SUMMARY | 2025-07-22 18:40 | XMS_ITS | Patient Health Record ---
Author Organization [facility] Address [address] [place] [address] Care Team Providers Care Neonatal Icu Coordinator Name Role Phone Lo Moss Primary Care Provider LO MOSS Unavailable Unavailable RekhaAnum pimentel Unavailable [phone] Allergies No Known Allergies Results Component Value Reference Range Flag Notes CRP [id number] Reviewed date:07/17/2025 08:22:15 AM Interpretation: Performing Lab: Notes/Report: Diagnosis Description: Pain in unspecified joint CRP <.50 .40-1.00 MG/DL Sedimentation Rate [id number] Reviewed date:07/17/2025 08:22:14 AM Interpretation: Performing Lab: Notes/Report: Diagnosis Description: Pain in unspecified joint Sed Rate 23 0-20 MM/HR HI DENNIS IGG SCREEN W/ RFX [id number] Reviewed date:07/17/2025 08:22:14 AM Interpretation: Performing Lab: Notes/Report: Diagnosis Description: Pain in unspecified joint DENNIS IgG None Detected DENNIS JESUS MANUEL assays have been reported to have lower sensitivity than DENNIS IFA for systemic autoimmune rheumatic diseases(SARD). Negative results do not necessarily rule out SARD. The GSD Antinuclear Antibody Screening test is qualitative enzyme immunoassay (EIA) intended to screen for the presence of antinuclear antibodies (DENNIS) in human serum, against double stranded DNA (dsDNA,nDNA), histone, SS-A/Ro, SS-B/La, Sm, Sm/WATCH TRAIN ASSEMBLER,SCL-70,Elisha-1, and ecntromeric antigens, along with sera positive for immunofluorescent (IFA) HEp-2 DENNIS. Uric Acid (B) 10458 Reviewed date:07/17/2025 08:22:15 AM Interpretation: Performing Lab: Notes/Report: Diagnosis Description: Pain in unspecified joint Uric Acid 5.0 2.6-6.0 MG/DL CBC w\ Auto Diff 21214 Reviewed date:07/17/2025 08:22:14 AM Interpretation: Performing Lab: Notes/Report: Diagnosis Description: Pain in unspecified joint WBC 10.0 4.5-11.0 X10'3 RBC 4.04 4.00-5.20 X10'6 Hgb 13.0 12.0-16.0 G/DL Hct 40.3 36.0-46.0 % MCV 99.8 80.0-100.0 FL MCH 32.2 27.0-31.0 PG HI MCHC 32.3 31.0-37.0 G/DL Platelet 405 150-400 X10'3 HI RDW-SD 51.5 35.0-49.0 FL HI RDW-CV 13.8 12.2-15.6 % MPV 9.2 9.2-12.0 FL Neutro Auto% 70.0 40.0-70.0 % Lymph Auto% 24.3 22.0-44.0 % [place] Auto% 4.1 3.0-7.0 % Eos Auto% .8 2.0-4.0 % LOW Baso Auto% 0.7 0.0-1.0 % Imm Gran% .1 .0-.4 % Neutro Abs 6.98 .80-7.70 Absolute Neutrophil Count 6980 NA Lymph Abs 2.42 .10-4.10 [place] Abs .41 .20-1.00 Eos Abs .08 .00-.40 Baso Abs .07 .00-.20 Imm Gran Abs .01 .00-.10 NRBC# .00 .00-.20 X10'3 NRBC% .00 .00-.20 /100 intact WBC's Vitamin D Total (B) 58950 Reviewed date:07/17/2025 08:22:15 AM Interpretation: Performing Lab: Notes/Report: Diagnosis Description: Pain in unspecified joint Vitamin D Total 14.8 30.0-100.0 ng/mL LOW Deficiency: < 20 ng/mL Sufficiency: 30?100 ng/mL Performed on the smsPREP IM Analyzer Insufficiency: 20? < 30 ng/mL Cyclic Citrulline Peptide 86 200 Reviewed date:07/17/2025 08:22:15 AM Interpretation: Performing Lab: Notes/Report: Diagnosis Description: Pain in unspecified joint CCP Antibody IgG <.54 NA >59 Unit/ml Strong Positive 5 Unit/ml-25Unit/ml Weak Positive <5 Unit/ml Negative 26 Unit/ml-59Unit/ml Positive Hemoglobin A1c 51573 Reviewed date:11/24/2024 09:49:49 AM Interpretation: Performing Lab: Notes/Report: Diagnosis Description: Encounter for screening for diabetes mellitus Hgb A1c 5.3 3.8-6.4 % Interpretation Of Hgb A1c: 4.5-6.2 % nondiabetics. >7.0 % diabetics. EAG 105 NA Estimated Aver age Glucose(EAG). Thyroid Stimulating Hormone (TSH) 43404 Reviewed date:11/24/2024 09:50:23 AM Interpretation: Performing Lab: Notes/Report: Diagnosis Description: Encounter for screening for other suspected endocrine disorder TSH >150.000 .358-3.740 MlU/ML HI T3 Free 61030 Reviewed date:11/24/2024 09:50:44 AM Interpretation: Performing Lab: Notes/Report: Diagnosis Description: Encounter for screening for other suspected endocrine disorder Free T3 .5 2.3-4.2 pg/mL LOW T4 [id number] Reviewed date:11/24/2024 09:51:04 AM Interpretation: Performing Lab: Notes/Report: Diagnosis Description: Encounter for screening for other suspected endocrine disorder Free T4 0.35 0.89-1.76 NG/DL LOW Lipid Panel Reflex DLDL 8006 1, 32512 Reviewed date:11/24/2024 09:51:23 AM Interpretation: Performing Lab: Notes/Report: Diagnosis Description: Mixed hyperlipidemia Trig 187 NA Desirable <150 5-9 yr 32-105 Children: Male Classification Guidelines:Triglycerides 5-9 yr 30-101 Adults: >20yrs 15-19 yr 37-148 High 200-499 0-4 yr 22-99 Borderline High 150-199 10-14 yr 37-131 10-14 yr 32-125 15-19 yr 39-132 0-4 yr 34-112 Children: Female Very high >=500 Chol 462 <=200 MG/DL HI HDL 36 39-96 MG/DL LOW 15-19y 35-74 10-14y 37-74 Female: >=20y 40-59 5-9y 38-75 Reference Ranges:HDL Male: 15-19y 30-63 >=20y 40-59 10-14y 37-70 5-9y 36-73 CH/HDL 12.8 0.0-4.9 RATIO HI LDL 389 0-130 MG/DL HI LDL result is inaccurate , if Trig is >400 mg/dl. See DLDL result. CBC w\ Auto Diff 74407 Reviewed date:11/24/2024 09:53:12 AM Interpretation: Performing Lab: Notes/Report: Diagnosis Description: Essential (primary) hypertension WBC 8.5 4.5-11.0 X10'3 RBC 3.93 4.00-5.20 X10'6 LOW Hgb 13.7 12.0-16.0 G/DL Hct 40.5 36.0-46.0 % MCV 103.1 80.0-100.0 FL HI MCH 34.9 27.0-31.0 PG HI MCHC 33.8 31.0-37.0 G/DL Platelet 359 150-400 X10'3 RDW-SD 58.0 35.0-49.0 FL HI RDW-CV 15.1 12.2-15.6 % MPV 10.0 9.2-12.0 FL Neutro Auto% 64.8 40.0-70.0 % Lymph Auto% 28.3 22.0-44.0 % [place] Auto% 4.5 3.0-7.0 % Eos Auto% 1.2 2.0-4.0 % LOW Baso Auto% 0.8 0.0-1.0 % Imm Gran% .4 .0-.4 % Neutro Abs 5.49 .80-7.70 Absolute Neutrophil Count 5490 NA Lymph Abs 2.40 .10-4.10 [place] Abs .38 .20-1.00 Eos Abs .10 .00-.40 Baso Abs .07 .00-.20 Imm Gran Abs .03 .00-.10 NRBC# .00 .00-.20 X10'3 NRBC% .00 .00-.20 /100 intact WBC's Comprehensive Metabolic Pane l (CMP) 46347 Reviewed date:11/24/2024 09:54:49 AM Interpretation: Performing Lab: Notes/Report: Diagnosis Description: Essential (primary) hypertension Glucose Serum 99 71-110 MG/DL Testing p erformed at [facility], [address] [place] [address] [place] [address]. CLIA ID#: [id number] BUN <5 7-21 MG/DL LOW Creat .85 .51-1.17 MG/DL Use of this assay is not recommended for patients undergoing treatment with phenindione, due to the potential for falsely depressed results. U-wmhhsx-y-benzoquinone imine (NAPQI) is a metabolite of acetaminophen, NAPQI concentrations of apparoximately 10 mg/L correlation to toxic levels of acetaminophen demonstrates a greater than or equil to 10% change in results. NAPQI concentrations greater than this may lead to falsely depressed results for patient samples. GFR 85.3 NA Calculation pe rformed from GFR calculator provided by the [employer]. Glomerular Filtration rate(GRF) is the best overall index of kidney function. Normal GFR varies according to age,sex, body size, and declines with age. The [employer] recommends using the CKD-EPI Creatinine Equation(2020) to estimate GFR. BUN/Creat Ratio <5.9 12.0-20.0 % LOW Total Protein 7.6 5.8-8.0 G/DL Albumin 5.0 3.2-4.8 G/DL HI Globulin 2.6 2.3-3.5 G/DL Alb/Glob 1.9 0.8-2.2 Calcium 10.0 8.7-10.4 MG/DL Sodium 136 136-145 MMOL/L Potassium 3.9 3.5-5.1 MMOL/L Chloride 97 98-107 MMOL/L LOW CO2 27.5 20.0-31.0 MMOL/L Anion Gap 15 5-15 Alk Phos 117 46-116 HI Bili Total .8 .3-1.2 MG/DL Use of this assay is not recommended for patients undergoing treatment with eltrombopag due to the potential for falsely elevated results. AST/SGOT 20 15-37 UNIT/L ALT/SGPT 12 12-78 UNIT/L Osmo Serum,Calculated Unable to Calculate 280-300 MOSM/KG NA Thyroid Stimulating Hormone (TSH) 47986 Reviewed date:01/26/2025 04:12:42 PM Interpretation: Performing Lab: Notes/Report: Diagnosis Description: Hypothyroidism, unspecified TSH .620 .358-3.740 MlU/ML T4 [id number] Reviewed date:07/13/2025 03:49:13 PM Interpretation: Performing Lab: Notes/Report: Diagnosis Description: Hypothyroidism, unspecified Free T4 1.31 0.89-1.76 NG/DL T3 Free 52853 Reviewed date:07/13/2025 03:49:06 PM Interpretation: Performing Lab: Notes/Report: Diagnosis Description: Hypothyroidism, unspecified Free T3 3.8 2.3-4.2 pg/mL Thyroid Stimulating Hormone (TSH) 42834 Reviewed date:07/13/2025 03:49:00 PM Interpretation: Performing Lab: Notes/Report: Diagnosis Description: Hypothyroidism, unspecified TSH .058 .358-3.740 MlU/ML LOW Hip w/ AP Pelvis Min 2V [id number] [id number] Reviewed date:12/15/2024 01:59:40 PM Interpretation: Performing Lab: Notes/Report: Cervical Spine AP/Lat 2-3 Vi [id number] Reviewed date:12/15/2024 01:59:30 PM Interpretation: Performing Lab: Notes/Report: Reason For Referral Reason Htn, Mixed Hyperlip, intermittent CP Diagnosis 1 Hypertension (I10) Diagnosis 2 Intermittent chest p ain (R07.9) Diagnosis 3 Mixed hyperlipidemia (E78.2) Referral Organization [facility] Referring Provider First Name Lo Referring Provider Last Name Isa Referring Provider Speciality Nurse Roxanne clement Referred Provider Ryne Salvador Referred Provider Specialty Cardiovascul ar Disease General Notes Melva Azul 11/23 02:32:04 PM >faxed Referral Priority Routine Medications Medication SIG (Take, Route, Frequency, Duration) Notes Start Date End Date Status Fish Oil 500 MG Capsule 1 capsule Orally daily Active traZODone HCl 50 MG Tablet TAKE 1 TO 2 TABLETS BY MOUTH AT BEDTIME NEEDED; Duration: 30 Active Levothyroxine Sodium 100 MCG Tablet TAKE 1 TABLET BY MOUTH ONCE DAILY IN THE MORNING ON AN EMPTY STOMACH; Duration: 30 Active Cyclobenzaprine HCl 10 MG Tablet TAKE 1 TABLET BY MOUTH TWICE DAILY NEEDED FOR 30 DAYS; Duration: 30 Active DULoxetine HCl 60 MG Capsule Delayed Release Particles Take 1 capsule by mouth twice daily; Duration: 30 Active Carafate 1 GM Tablet 1 tablet on an empty stomach Orally three times a day Not-Taking Albuterol Sulfate HFA 108 (90 Base) MCG/ACT Aerosol Solution 1 puff as needed Inhalation every 4 hrs 01/30/2025 Active Omeprazole 20 MG Capsule Delayed Release 1 capsule 30 minutes before morning meal Orally Once a day Not-Taking Albuterol Sulfate HFA 108 (90 Base) MCG/ACT Aerosol Solution 2 puff as needed Inhalation every 4 hrs 01/07/2024 Active Lipitor 80 MG Tablet 1 tablet Orally Once a day; Duration: 30 days Not-Taking DULoxetine HCl 30 MG Capsule Delayed Release Particles 1 capsule Orally Twice a day; Duration: 30 days In additional to the 60 mg Twice for a total of 90 mg twice. 10/29/2023 Active Isosorbide Mononitrate ER 30 MG Tablet Extended Release 24 Hour 1 tablet in the morning Orally Once a day Not-Taking Diclofenac Sodium 75 MG Tablet Delayed Release Take 1 tablet by mouth twice daily as needed; Duration: 30 days Active Triamcinolone Acetonide 0.1 % Cream 1 application as needed Externally twice a day 06/26/2025 Active Nitroglycerin 0.4 MG Tablet Sublingual as directed Sublingual; Duration: 30 days Active Cetirizine HCl 10 MG Tablet 1 tablet Orally Once a day; Duration: 30 days 06/26/2025 Active Metoprolol Tartrate 25 MG Tablet Take 1 tablet by mouth once daily with food; Duration: 30 Active ALPRAZolam 1 MG Tablet 1 tablet as needed Orally Twice a day; Duration: 30 days 06/08/2025 Active Ezetimibe 10 MG Tablet Take 1 tablet by mouth once daily; Duration: 30 Active Immunizations Vaccine Route Administration Date Status Comme nts Flucelvax Trivalent, Syringe 0.5 mL, PF Unknown 024 Refused Flucelvax Trivalent, Syringe 0.5 mL, PF Unknown 025 Refused Social History Tobacco Use: Social History Observation Description Date Details (start date - stop date) Current Smoker NA - NA Social History Depression Screening Social Info Question Answer Notes PHQ-9 Little interest or pleasure in doing thin gs Not at all Feeling down, depressed, or hopeless Not at all Trouble falling or staying asleep, or sleeping t oo much Not at all Feeling tired or having little energy Not at all Poor appetite or overeating Not at all Feeling bad about yourself, or that you are a failure, or have let yourself or your family down Not at all Trouble concentrating on thi ngs, such as reading the newspaper or watching television Not at all Moving or speaking so slowly that other people could have noticed. Or the opposite ? being so fidgety or restless that you have been moving around a lot more than usual Not at all Thoughts that you would be b ping off , or of hurting yourself in some way Not at all Total Score 0 Drugs/Alcohol: Social Info Question Answer Notes Alcohol Screen (Audit-C) Did you have a drink containing alcohol in the past year? Yes How often did you have a drink containing alcohol in the past year? Monthly or less (1 point) Points 1 Interpretation Negative Tobacco Use: Social Info Question Answer Notes xTobacco Use/Smoking Are you a current smoker How often do you smoke cigarettes? every day Section Notes: 05/25/23 PHQ9 05/25/23 PHQ9 05/25/23 PHQ9 11/22/24 PHQ9 05/25/23 PHQ9 11/22/24 PHQ9 05/25/23 PHQ9 11/22/24 PHQ9 05/25/23 PHQ9 11/22/24 PHQ9 05/25/23 PHQ9 11/22/24 PHQ9 05/25/23 PHQ9 11/22/24 PHQ9 05/25/23 PHQ9 11/22/24 PHQ9 05/25/23 PHQ9 11/22/24 PHQ9 05/25/23 PHQ9 11/22/24 PHQ9 05/25/23 PHQ9 11/22/24 PHQ9 05/25/23 PHQ9 11/22/24 PHQ9 05/25/23 PHQ9 05/25/23 PHQ9 05/25/23 PHQ9 05/25/23 PHQ9 05/25/23 PHQ9 11/22/24 PHQ9 05/25/23 PHQ9 11/22/24 PHQ9 05/25/23 PHQ9 05/25/23 PHQ9 05/25/23 PHQ9 05/25/23 PHQ9 05/25/23 PHQ9 05/25/23 PHQ9 05/25/23 PHQ9 05/25/23 PHQ9 05/25/23 PHQ9 Problems Problem Type SNOMED Code ICD Code Onset Dates Problem Status W/U Status Risk Notes Problem Mixed hyperlipidemia (338626402) Mixed hyperlipidemia (E78.2) Active confirmed Problem Chronic pain (67189545) Other chronic pain (G89.29) Active confirmed Problem Mixed anxiety and depressive disorder (403046171) Depression with anxiety (F41.8) Active confirmed Problem Sinusitis (85472846) Sinusitis (J32.9) Active confirmed Problem Insomnia (977986399) Insomnia (G47.00) Active confirmed Problem Depression (583095826) Depression (F32.9) Active confirmed Problem Neck pain (33644594) Cervical spine pain (M54.2) Active confirmed Problem Hypothyroid (93042169) Hypothyroid (E03.9) Active confirmed Problem Hypertension (03073151) Hypertension (I10) Active confirmed Problem Tobacco dependence (05642206) Tobacco dependence (F17.200) Active confirmed Problem Amnesia (02535360) Memory changes (R41.3) Active confirmed Vital Signs Heart Rate 89 /min 07/19/2025 Temperature 97.4 degrees Fahrenheit 07/19/2025 Respiratory Rate 20 /min 07/19/2025 Blood pressure diastolic 76 mm Hg 07/19/2025 Oximetry 99 % 07/19/2025 Height-cm 157.48 cm 07/19/2025 Weight-kg 53.07 kg 07/19/2025 Height 62 in 07/19/2025 Blood pressure systolic 118 mm Hg 07/19/2025 Weight 117 lbs 07/19/2025 BMI 21.4 kg/m2 07/19/2025 Encounters Encounter Location Date Provider Diagnosis [facility] [address] [address] 09/07/2024 Lo Moss Depression with anxi ety F41.8 ; Encounter for immunization Z23 and Immunization not carried out because of patient refusal Z28.21 [facility] [address] [address] 11/22/2024 Lo Moss Hypertension I10 ; Mixed hyperlipidemia E78.2 ; Intermittent chest pain R07.9 ; Tobacco dependence F17.200 ; Screening for diabetes mellitus Z13.1 ; Screening for thyroid disorder Z13.29 and Depression screen Z13.31 [facility] [address] [place] [address] 11/29/2024 Lo Moss Hypertension I10 ; Mixed hyperlipidemia E78.[address] [facility] [address] [place] [address] 12/14/2024 Lobianca Leonton Cervical spine pain M54.2 ; Hip pain M25.[address] [facility] [address] [place] [address] 01/10/2025 Lo Moss Hypothyroid E03.9 an d Sinusitis J32.9 [facility] [address] [place] [address] 01/30/2025 Lo Moss Tobacco dependence F17.200 ; Acute bronchitis J20.9 and Depression with anxiety F41.8 [facility] [address] [place] [address] 02/21/2025 Lo Leonton Depression with anxi ety F41.8 ; Screening for breast cancer Z12.39 and Screening for colon cancer Z12.11 [facility] [address] [place] [address] 03/23/2025 Lo Batterton Depression with anxi ety F41.[address] [facility] [address] [facility] [address] [place] [address] 04/10/2025 Lo Batterton Depression with anxi ety F41.8 and Tooth pain K08.89 [facility] [address] [facility] [address] [place] [address] 04/25/2025 Lo Leonton Acute gastroenteriti s K52.9 and Acute diarrhea R19.7 [facility] [address] [place] [address] 06/08/2025 Ol Batterton Depression with anxi ety F41.8 [facility] [address] [place] [address] 06/26/2025 Lo Moss Hypothyroid E03.9 an d Acute dermatitis L30.9 [facility] [address] [facility] [address] [place] [address] 07/10/2025 Lo Moss Multiple joint pain M25.50 ; Encounter for immunization Z23 and Immunization not carried out because of patient refusal Z28.21 [facility] [address] [facility] [address] [place] [address] 07/19/2025 Lo Moss Headache R51.9 [facility] [address] [place] [address], [place] [address] 07/20/[address] [facility] [address] [facility] [address] [place] [address] 09/15/[address] [facility] [address] [place] [address] 12/15/2024 Lo Moss Cervical spine pain M54.2 and Multiple joint pain M25.50 [facility] [address] [facility] [address] [place] [address] 01/17/[address] [facility] [address] [facility] [address] [place] [address] 03/07/2025 Lo Moss Hypothyroid E03.9 an d Mixed hyperlipidemia E78.2 [facility] [address] [facility] [address] [place] [address] 04/11/2025 Lo Moss Tooth pain K08.89 [facility] [address] [facility] [address] [place] [address] 05/01/2025 Lobianca Moss Assessments Encounter Date Diagnosis (ICD Code) Assessment Notes Treatment Notes Treatment Clinical Notes Section Notes 11/22/2024 Mixed hyperlipidemia (ICD-10 - E78.2) 11/22/2024 Hypertension (ICD-10 - I10) 12/15/2024 Cervical spine pain (ICD-10 - M54.2) 12/15/2024 Multiple joint pain (ICD-10 - M25.50) 01/30/2025 Acute bronchitis (ICD-10 - J20.9) Increase fluids, take medication as directed. RTC if no improvement with treatment. 01/30/2025 Tobacco dependence (ICD-10 - F17.200) No interest in stopping. 03/07/2025 Hypothyroid (ICD-10 - E03.9) 04/11/2025 Tooth pain (ICD-10 - K08.89) 04/25/2025 Acute gastroenteritis (ICD-10 - K52.9) Will need to get their water tested, take medication as directed. If no improvement bring in stool sample for testing, supplies sent home with pt. Questions asked and answered; discharged to home. 04/25/2025 Acute diarrhea (ICD-10 - R19.7) 07/10/2025 Multiple joint pain (ICD-10 - M25.50) Will recheck arthritis panel, refer to Rheumatology. Questions asked and answered; discharged to home. 07/19/2025 Headache (ICD-10 - R51.9) Toradol injection given. RTC if no improvement with treatment. Questions asked and answered; discharged to home. 06/26/2025 Acute dermatitis (ICD-10 - L30.9) RTC if no improvement with treatment. Questions asked and answered; discharged to home. 06/26/2025 Hypothyroid (ICD-10 - E03.9) 06/08/2025 Depression with anxiety (ICD-10 - F41.8) Recheck in 1 month. Questions asked and answered; discharged to home. 04/10/2025 Depression with anxiety (ICD-10 - F41.8) Recheck in 1 month. 04/10/2025 Tooth pain (ICD-10 - K08.89) Toradol injection given. Make dental apt RODRI. 03/23/2025 Depression with anxiety (ICD-10 - F41.8) Stable, continue same. 03/23/2025 Insomnia (ICD-10 - G47.00) Recheck in 1 month. 02/21/2025 Depression with anxiety (ICD-10 - F41.8) Recheck in 2 months. 02/21/2025 Screening for breast cancer (ICD-10 - Z12.39) 01/10/2025 Sinusitis (ICD-10 - J32.9) Increase fluids, take medication as directed. RTC if no improvement with treatment. 01/10/2025 Hypothyroid (ICD-10 - E03.9) 12/14/2024 Cervical spine pain (ICD-10 - M54.2) Toradol injection given. 12/14/2024 Hip pain (ICD-10 - M25.559) 11/29/2024 Mixed hyperlipidemia (ICD-10 - E78.2) Recheck in 3 months. 09/07/2024 Depression with anxiety (ICD-10 - F41.8) Recheck in 1 month. 11/29/2024 Hypertension (ICD-10 - I10) Stable, continue same. 09/07/2024 Encounter for immunization (ICD-10 - Z23) 11/22/2024 Intermittent chest pain (ICD-10 - R07.9) 11/29/2024 Hypothyroid (ICD-10 - E03.9) Recheck in 2 months. 12/14/2024 Insomnia (ICD-10 - G47.00) 02/21/2025 Screening for colon cancer (ICD-10 - Z12.11) 07/10/2025 Encounter for immunization (ICD-10 - Z23) 03/07/2025 Mixed hyperlipidemia (ICD-10 - E78.2) 01/30/2025 Depression with anxiety (ICD-10 - F41.8) 07/10/2025 Immunization not carried out because of patient refusal (ICD-10 - Z28.21) 11/22/2024 Tobacco dependence (ICD-10 - F17.200) No interest in stopping. 09/07/2024 Immunization not carried out because of patient refusal (ICD-10 - Z28.21) 11/22/2024 Screening for diabetes mellitus (ICD-10 - Z13.1) 11/22/2024 Screening for thyroid disorder (ICD-10 - Z13.29) 11/22/2024 Depression screen (ICD-10 - Z13.31) 11/22/2024 Other Venipuncture performed. Left/Right arm. attempt x 3. Pt tolerated well, bleeding controlled with light dressing., Melva Azul LPN 01/10/2025 Other Venipuncture performed. Right arm. One attempt. Pt tolerated well, bleeding controlled with light dressing.Melva Azul [employer] OFFICER 06/26/2025 Other Venipuncture performed. Left arm. One attempt. Pt tolerated well, bleeding controlled with light dressing.Maegan [facility] AVIATION SAFETY OFFICER 07/10/2025 Other Venipuncture performed. Left hand. One attempt. Pt tolerated well, bleeding controlled with light dressing.[facility] [employer]AF[employer] OFFICER Plan Of Treatment No Information Insurance Providers Payer Name Payer Address Payer Phone Subscriber Number Group Number Insured Name Patient Relationship to Insured Coverage Start Date Coverage End Date [facility] Plan Medicaid Replacement [address] [facility] [place] [phone] [id number] Celina Reagan Self - patient is the insured Medications Administered Medication Instructions Date of Administration Dosage Notes Ketorolac Tromethamine 01/19/2024 60 mg nd [id number] Patient tolerated well. Ketorolac Tromethamine 12/14/2024 60 mg nd [id number] Patient tolerated well. Ketorolac Tromethamine 04/10/2025 60 mg nd [id number] Patient tolerated well. Ketorolac Tromethamine 07/19/2025 60 mg nd [id number] tient tolerated well. Medical (General) History Medical History History ICD Code hypertension hyperlipidemia Surgical History Surgery Date(Month/Year) hysterectomy age 19
--- OUTSIDE RECORDS SUMMARY | 2025-07-22 18:40 | XMS_ITS | Encounter Summary ---
Author Organization [facility] Address [address] [place] [address] Care Team Providers Care Coverage Specialist Rn Name Role Phone Chele Arevalo Primary Care Provider + [phone] Reason for Referral * Outpatient Services (Routine) - Closed Specialty Diagnoses / Procedures Referred By Marietta voss Referred To Contact Diagnoses Cephalgia Procedures CT SINUS FACIAL BONES WO CONTRAST Casey Lindsay DO NO ADDRESS ON FILE Referral ID Status Reason Start Date Expiration Date Visits Re quested Visits Authorized [id number] Closed 04/06/2012 04/06/2013 1 1 Encounter Details Date Type Department Care Team (Late st Contact Info) Description 04/06/2012 Ancillary Orders [facility] CT Scan [place] [address] [place] [id number] Casey Lindsay DO NO ADDRESS ON FILE Cephalgia Social History Tobacco Use Types Packs/Day Years Used Date Smoking Tobacco: Never Assessed Comments Unknown Sex and Gender Information Value Date Recorded Sex Assigned at Not on file 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 Sagittal and coronal reconstructions are also obtained. DESCRIPTION The study shows normal appearance of the paranasal sinuses with no mucosal thickening or air/fluid levels seen. IMPRESSION normal CT of the paranasal sinuses Procedure Note Pilo Davies MD - 04/06/2012 TECHNIQUE Helical axial imaging from below the maxillary sinuses through the frontal sinuses was obtained at 5 mm increments for 20 axial images. Sagittal and coronal reconstructions are also obtained. DESCRIPTION The study shows normal appearance of the paranasal sinuses with no mucosal thickening or air/fluid levels seen. IMPRESSION normal CT of the paranasal sinuses us Casey Lindsay DO CT ORDERABLES Final Result documented in this encounter Visit Diagnoses Diagnosis Cephalgia Headache Cephalgia Headache documented in this encounter Care Teams Coverage Specialist Rn Relationship Specialty Start Date End Date Chele Arevalo PA PCP - General Physician Convention Manager 01/16/13 documented as of this encounter
--- OUTSIDE RECORDS SUMMARY | 2025-07-22 18:40 | XMS_ITS | Encounter Summary ---
Author Organization [facility] Address [address] [place] [address] Care Team Providers Care Landscape Maintenance Internship Name Role Phone Chele Arevalo Primary Care Provider + [phone] Encounter Details Date Type Department Care Team (Late st Contact Info) Description 06/21/2012 Ancillary Orders [facility] [place] [address] [place] [address] Sick Social History Tobacco Use Types Packs/Day Years Used Date Smoking Tobacco: Every Day Cigarettes Alcohol Use Standard Drinks/Week Comments No 0 (1 standard drink = 0.6 oz pur e alcohol) Comments No Sex and Gender Information Value Date Recorded Sex Assigned at Not on file Legal Sex Female 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 Gender Identity Not on file Sexual Orientation Not on file Occupation Industry Job Start Date Job End Date Not on file Not on file Not on file Not on file documented as of this encounter Plan of Treatment Not on file documented as of this encounter Procedures Procedure Name Priority Date/Time Associated Diagnosis Comments T3 Routine 06/21/2012 7:21 PM CDT SICK [ICD-9-CM] TSH Routine 06/21/2012 7:21 PM CDT SICK [ICD-9-CM] T4 FREE Routine 06/21/2012 7:21 PM CDT SICK [ICD-9-CM] documented in this encounter Results * (ABNORMAL) TSH (06/21/2012 7:21 PM CDT) TSH 15.57(H) 0.30 - 4.80 uIU/mL 06/21/2012 11:47 PM CDT [facility] [employer] [facility] Blood specimen (specimen) 06/21/2012 7:21 PM CDT 06/21/2012 11:02 PM CDT Delilah J Jigar CINDER PIT WORKER CHEMISTRY ORDERABLES Final Result Performing Organization Address [facility] de Phone Number [facility] CLIA # [id number] [address] [place] [address] * (ABNORMAL) T4 FREE (06/21/2012 7:21 PM CDT) T4 FREE 0.69(L) 0.70 - 1.80 ng/dL 06/21/2012 11:47 PM CDT [facility] Blood specimen (specimen) 06/21/2012 7:21 PM CDT 06/21/2012 11:02 PM CDT Delilah Plays[employer]IO Jigar CINDER PIT WORKER CHEMISTRY ORDERABLES Final Result Performing Organization Address [facility] de Phone Number [facility] CLIA # [id number] [address] [place] [address] * T3 (06/21/2012 7:21 PM CDT) T3 88 76 - 181 ng/dL 06/25/2012 2:50 AM CDT [facility] [employer] [facility] Comment: Test Performed by Florinda Franz, [facility], [address] [place] [address] Alberto Ingram M.D., Ph.D., Director of Laboratories , CLIA [id number] Blood specimen (specimen) 06/21/2012 7:21 PM CDT 06/21/2012 11:02 PM CDT Delilah Pl[employer]IO Florence CINDER PIT WORKER CHEMISTRY ORDERABLES Final Result Performing Organization Address [facility] Co de Phone Number [facility] [employer] [facility] CLIA# [id number] [address] [place] [address] documented in this encounter Visit Diagnoses Diagnosis Sick Other unknown and unspecified cause of morbidity or mortality documented in this encounter Care Teams Landscape Maintenance Internship Relationship Specialty Start Date End Date Chele Arevalo PA PCP - General Physician Design Lead 01/16/13 documented as of this encounter
--- OUTSIDE RECORDS SUMMARY | 2025-07-22 18:40 | XMS_ITS | Encounter Summary ---
Author Organization [facility] Address [address] [place] [address] Care Team Providers Care Regulatory Services Consultant Name Role Phone Chele Arevalo Primary Care Provider + [phone] Encounter Details Date Type Department Care Team (Latest Contact Info) Description 10/17/2004 Outpatient Historical [facility] [address] [address] Celsa Dunham MD [address] [place] [address] ACUTE PHARYNGITIS (Primary Dx); ENLARGEMENT LYMPH NODES Social History Tobacco Use Types Packs/Day Years Used Date Smoking Tobacco: Never Assessed Comments Unknown Sex and Gender Information Value Date Recorded Sex Assigned at Not on file 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
--- OUTSIDE RECORDS SUMMARY | 2025-07-22 18:40 | XMS_ITS | Encounter Summary ---
Author Organization [facility] Address [address] [place] [address] Care Team Providers Care County Health Officer Name Role Phone Chele Arevalo Primary Care Provider + [phone] Reason for Referral * Outpatient Services (Routine) - Closed Specialty Diagnoses / Procedures Referred By Marietta voss Referred To Contact Diagnoses Cephalgia Procedures CT HEAD WO CONTRAST Casey Lindsay DO NO ADDRESS ON FILE Referral ID Status Reason Start Date Expiration Date Visits Re quested Visits Authorized [id number] Closed 04/06/2012 04/06/2013 1 1 Encounter Details Date Type Department Care Team (Late st Contact Info) Description 04/06/2012 Ancillary Orders [facility] CT Scan [place] [address] [place] [phone] Casey Lindsay DO NO ADDRESS ON FILE Cephalgia Social History Tobacco Use Types Packs/Day Years Used Date Smoking Tobacco: Never Assessed Comments Unknown Sex and Gender Information Value Date Recorded Sex Assigned at Not on file Legal Sex Female 4:05 AM SECOND MATE Gender Identity Not on file Sexual Orientation Not on file documented as of this encounter Plan of Treatment Not on file documented as of this encounter Results * CT HEAD WO CONTRAST (04/06/2012 10:44 AM CDT) Anatomical Region Laterality Modality Head Computed Tomogra phy 04/06/2012 10:3 5 AM CDT Narrative 04/06/2012 11:03 AM CDT PROCEDURE HEAD CT noncontrast 06 April 2012 TECHNIQUE Noncontrast computed cerebral tomography was obtained with 30 axial images. Bone window, sagittal, and coronal reconstructions are also obtained. DESCRIPTION Noncontrast computed cerebral tomography shows no intracranial hemorrhage. There is no midline shift, mass effect, or edema. No extra-axial fluid collection is seen. Bone window settings show intact calvarium. There is no abnormal fluid density seen in the visualized paranasal sinuses or mastoid air cells. IMPRESSION negative noncontrast head CT Procedure Note Pilo Davies MD - 04/06/[address] noncontrast 06 April 2012 TECHNIQUE Noncontrast computed cerebral tomography was obtained with 30 axial images. Bone window, sagittal, and coronal reconstructions are also obtained. DESCRIPTION Noncontrast computed cerebral tomography shows no intracranial hemorrhage. There is no midline shift, mass effect, or edema. No extra-axial fluid collection is seen. Bone window settings show intact calvarium. There is no abnormal fluid density seen in the visualized paranasal sinuses or mastoid air cells. IMPRESSION negative noncontrast head CT Casey Lindsay DO CT ORDERABLES Final Result documented in this encounter Visit Diagnoses Diagnosis Cephalgia Headache Cephalgia Headache documented in this encounter Care Teams County Health Officer Relationship Specialty Start Date End Date Chele Arevalo PA PCP - General Physician Material Control Analyst 01/16/13 documented as of this encounter
--- OUTSIDE RECORDS SUMMARY | 2025-07-22 18:40 | XMS_ITS | Encounter Summary ---
Author Organization [facility] Address [address] [place] [address] Care Team Providers Care Airfield Operations Specialist Name Role Phone Chele Arevalo Primary Care Provider + [phone] Encounter Details Date Type Department Care Team (Late st Contact Info) Description 04/06/2012 Ancillary Orders [facility] CT Scan [place] [address] [place] [phone] Casey Lindsay, DO NO ADDRESS ON FILE Cephalgia Social History Tobacco Use Types Packs/Day Years Used Date Smoking Tobacco: Never Assessed Comments Unknown Sex and Gender Information Value Date Recorded Sex Assigned at Not on file Legal Sex Female 4:05 AM PHOTOFINISHING 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
--- OUTSIDE RECORDS SUMMARY | 2025-07-22 18:40 | XMS_ITS | Clinical Summary ---
Author Organization [facility] Address [address] [place]: Epic Prelude ADT [place] [address] Care Team Providers Care Passenger Agent Name Role Phone Chele Arevalo Primary Care Provider + [phone] Allergies No known active allergies Medications amoxicillin (AMOXIL) 500 mg capsule Take 1 Capsule (500 mg) by mouth 3 times daily. 24 Capsule None 6 Active ibuprofen (MOTRIN) 200 mg tablet Take 4 Tablet (800 mg) by mouth every 8 hours as needed for Pain. 6 Active traMADoL (ULTRAM) 50 mg tablet Take 1 Tablet (50 mg) by mouth every 6 hours as needed for Pain, Moderate. 12 Tablet None 6 Active neomycin-polymy olvin B-hydrocortison e (CORTISPORIN OTIC) 3.5-10,000-1 mg/mL-unit/mL-% otic suspension Administer 3 Drops in right ear 4 times daily. 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 OPERATOR Gender Identity Not on file Sexual Orientation Not on file Last Filed Vital Signs Vital Sign Reading Time Taken Comments Blood Pressure 126/72 01/31/2016 3:22 PM CDT Pulse 100 10/16/2014 9:52 AM DYE MACHINE OPERATOR Temperature 36.4 C (97.6 F) 01/31/2016 3:22 PM CDT Respiratory Rate 14 01/31/2016 3:22 PM CDT Oxygen Saturation - - Inhaled Oxygen Concentration - - Weight 47.6 [...] BREAST CANCER SCREENING 2018 COLORECTAL SCREENING 2023 Colorectal Cancer Screening 2023 FIT-DNA Q 3 years 2023 FIT/FOBT Q 1 year 2023 Flex Sig/CT Colonography Q 5 years 2023 INFLUENZA VACCINE (#1) 2025 Care Teams Passenger Agent Relationship Specialty Start Date End Date Chele Arevalo PA [address] [place] [address] PCP - General Physician Chemical Pathologist 01/16/13
--- NOTE | 2025-07-22 19:19 | XRR_ITS ---
PROCEDURE INFORMATION: Exam: XR Chest Exam date and time: 07/22/2025 7:18 PM Age: 45 years old Clinical indication: Pain; Chest pressure; Additional info: Cp TECHNIQUE: Imaging protocol: Radiologic exam of the chest. Views: 1 view. COMPARISON: CR XR chest 1V portable [id number] 06/15/2023 1:00 PM FINDINGS: Lungs: No pulmonary consolidation. Mild [id number]-hdjv-right basilar atelectasis or scarring. Pleural spaces: No pleural effusion or pneumothorax. Heart/Mediastinum: Heart size is within normal limits. Bones/joints: No acute osseous abnormalities are seen. XR/XR chest 1V portable [id number] IMPRESSION: No acute cardiopulmonary disease.
--- NOTE | 2025-07-22 19:19 | ECG_ITS ---
[facility] Test Date: 2025-07-22 Pat Name: Celina Reagan Department: Room: Gender: Female Professional Nursing Assistant: : 1980 Requested By: Elian Mcduffie Order Number: [id number] Lenard MD: JOSIAS SNELL Measurements Intervals [place] Rate: 103 P: 64 FL: 148 QRS: 104 QRSD: 88 T: -75 QT: 316 QTc: 416 Interpretive Statements SINUS TACHYCARDIA RIGHT AXIS DEVIATION [QRS AXIS > 100] ST DEVIATION AND MODERATE T-WAVE ABNORMALITY, CONSIDER ANTEROLATERAL ISCHEMIA [-0.1+ mV T-WAVE IN V3-V6] ST DEVIATION AND MODERATE T-WAVE ABNORMALITY, CONSIDER INFERIOR ISCHEMIA [-0.1+ mV T-WAVE IN II/aVF] Compared to ECG 06/15/2023 15:09:26 Sinus rhythm no longer present T-wave abnormality still present Possible ischemia still present Electronically Signed On 07-23-2025 22:25:48 CDT by JOSIAS SNELL [id number]
--- NOTE | 2025-07-22 19:28 | W.ED.CHESTPA ---
HPI - Chest Pain General: Chief Complaint: Chest Pain Stated Complaint: CP pain in leg, heart cath Time Seen by Provider: 07/22/25 18:43 History of Present Illness: Patient is a 45-year-old female who recently underwent cardiac catheterization on Thursday (4 days ago) which revealed triple vessel coronary artery disease. The womens health nurse practitioner, Dr. Chan, recommended quadruple bypass surgery. The patient reports continued symptoms since the catheterization including increased chest pain, profound fatigue, and new onset shooting pain in her left leg that radiates from the posterior aspect up the entire leg. She describes her breathing as having episodes where she feels like she's missing a breath rather than continuous shortness of breath. She also reports worsening dizziness since the cardiac catheterization procedure. The patient notes her blood pressure has been running low, while her heart rate is typically elevated. She states she has no energy, like none and her overall weakness has worsened in the last couple of days. She has nitroglycerin prescribed but has not taken any today despite having chest pain. She has not yet been scheduled with a cardiothoracic surgeon for her recommended bypass surgery. Related Data Home Medications ?Medication ?Instructions ?Recorded ?Confirmed alprazolam 0.5 mg tablet (Xanax) 0.5 mg PO TID PRN Anxiety 01/06/25 07/17/25 cyclobenzaprine 10 mg tablet 10 mg PO TID PRN Muscle Spasm 01/06/25 07/17/25 duloxetine 30 mg capsule,delayed 30 mg PO BID 01/06/25 07/18/25 release duloxetine 60 mg capsule,delayed 60 mg PO BID 01/06/25 07/18/25 release levothyroxine 50 mcg tablet 100 mcg PO ONCE 07/12/25 07/18/25 (Synthroid) Previous Rx's ?Medication ?Instructions ?Recorded albuterol sulfate 90 mcg/actuation 2 inh inhalation Q4H PRN shortness 09/02/22 aerosol inhaler of breath or wheezing #18 grams aspirin 81 mg tablet 81 mg PO DAILY #90 tabs 07/12/25 midodrine 10 mg tablet 10 mg PO TID #90 tabs 07/12/25 nitroglycerin 0.4 mg sublingual 0.4 mg sublingual Q5M PRN chest 07/12/25 tablet pain #30 tabs pantoprazole 40 mg tablet,delayed 40 mg PO DAILY #90 tabs 10/15/25 release Allergies Allergy/AdvReac Type Severity Reaction Status Date / Time No Known Allergies Allergy Verified 07/22/25 18:47 PFSH ED PFSH: Medical History Depression with anxiety Acquired hypothyroidism Surgical History History of tubal ligation History of hysterectomy (~2000) due to cancer Family History Grandmother Myocardial infarction Grandfather Myocardial infarction Family/Other Myocardial infarction Mother Stroke Hypertension Diabetes Other Heart disease Social History Smoking and tobacco/nicotine status: current every day tobacco/nicotine user cigarettes Packs smoked per day: 1 [ Other cigarette details: Trying to quit] Physical Exam Const: COMMON NORMALS: no acute distress GENERAL APPEARANCE: cooperative and ill appearing (mildly); not frail appearing HENMT: COMMON NORMALS: normocephalic, atraumatic and Normal external nose present HEAD & SCALP: normocephalic and atraumatic FACE & SINUS: normal facial exam and face symmetric NOSE: Normal external nose present Eye: COMMON NORMALS: Equal, round and reactive pupils present and EOMs intact bilaterally PUPIL: Yes Equal, round and reactive pupils present Neck/C-Spine: GENERAL: Yes trachea midline Chest: CHEST: Yes Symmetrical chest wall rise Resp: COMMON NORMALS: normal respiratory effort, No retractions, No use of accessory muscles and clear to auscultation bilaterally AUSCULTATION: clear to auscultation bilaterally Cardio: COMMON NORMALS: regular rate and regular rhythm RATE: regular rate RHYTHM: regular rhythm GI: COMMON NORMALS: Normal to inspection, nondistended, normoactive bowel sounds present Extremity: COMMON NORMALS: no pedal edema Neuro: LAUREN COMA SCALE: document GCS findings [place] coma scale eye opening: Spontaneous Lauren coma scale verbal response: Orientated Lauren coma scale motor response: Obey commands [place] coma scale total score: 15 SENSORY EXAM: Yes extremities (intact) Psych: COMMON NORMALS: speech normal SPEECH: Yes normal speech Skin: COMMON NORMALS: no rashes or lesions noted GENERAL SKIN EXAM: no rashes or lesions noted Course Vital Signs: Vital signs: Vital Signs Temperature 97.8 F 07/22/25 18:42 Pulse Rate 98 07/22/25 22:22 Respiratory Rate 20 H 07/22/25 22:22 Blood Pressure 126/80 07/22/25 22:22 Pulse Oximetry 94 07/22/25 22:22 Oxygen Delivery Me thod Room Air 07/22/25 22:00 MDM - Chest Pain Medical Decision Making 45-year-old female with known four-vessel coronary disease. She presents with ongoing chest discomfort. She has ST depression with T wave inversion anterior laterally. EKG timed 1838 read at 1840 shows a sinus rhythm with rate of 100. Right axis. Intervals are normal. ST-T changes otherwise as above. Chest x-ray is negative. BNP is less than 36, troponin initially is nondetectable. She is improved, down to 1-2 out of 10 after morphine and Nitropaste here. Will DC the Nitropaste, place her on nitro drip, heparin drip. Spoke with cardiology. Offered to observe her here, and transfer in the morning. Spoke with hospitalist who requests we see if the patient can be transferred this evening. Spoke with chest surgery in [place], which is where the patient wished to go, and he has graciously agreed to except the patient. She will go tonight as soon as transport is available on drips as above. She is given metoprolol as well per cardiology recommendations. Lab Data 07/22/25 19:38 07/22/25 19:38 Radiology Impressions Chest X-Ray 07/22/25 19:19 IMPRESSION: No acute cardiopulmonary disease. Laboratory Results WBC 7.37 10^3/uL (3.29-11.43) 07/22/25 19:38 RBC 4.02 10^6/uL (3.85-5.65) 07/22/25 19:38 Hgb 12.90 g/dL (11.27-16.99) 07/22/25 19:38 Hct 38.7 % (36-47) 07/22/25 19:38 MCV 96.3 fl (85-98) 07/22/25 19:38 MCH 32.1 pg (27-33) 07/22/25 19:38 MCHC 33.3 g/dL (30-55) 07/22/25 19:38 RDW 13.8 % (12.1-15.1) 07/22/25 19:38 Plt Count 405 10^3/cmm (157-399) H 07/22/25 19:38 MPV 8.8 fL (7.4-10.4) 07/22/25 19:38 Neut % (Auto) 46.1 % 07/22/25 19:38 Lymph % (Auto) 45.7 % 07/22/25 19:38 [place] % (Auto) 5.7 % 07/22/25 19:38 Eos % (Auto) 1.4 % 07/22/25 19:38 Baso % (Auto) 0.8 % 07/22/25 19:38 Neut # (Auto) 3.40 10^3/uL (1.8-7.7) 07/22/25 19:38 Lymph # (Auto) 3.4 10^3/uL (0.8-4.8) 07/22/25 19:38 [place] # (Auto) 0.4 10^3/uL (0.2-0.9) 07/22/25 19:38 Eos # (Auto) 0.1 10^3/uL (0.0-0.8) 07/22/25 19:38 Baso # (Auto) 0.1 10^3/uL (0.0-0.1) 07/22/25 19:38 Nucleated RBC % (auto) 0 % 07/22/25 19:38 Nucleated RBCs # 0.0 /100WBC 07/22/25 19:38 Sodium 139 mmol/L (136-145) 07/22/25 19:38 Potassium 4.0 mmol/L (3.5-5.1) 07/22/25 19:38 Chloride 104 mmol/L (98-107) 07/22/25 19:38 Carbon Dioxide 21 mmol/L (22-29) L 07/22/25 19:38 Anion Gap 18.0 (5-19) 07/22/25 19:38 BUN 5 mg/dL (6-20) L 07/22/25 19:38 Creatinine 0.4 mg/dL (0.5-0.9) L 07/22/25 19:38 GFR Calculation 171.1 mL/min (90-130) H 07/22/25 19:38 Glucose 92 mg/dL (65-115) 07/22/25 19:38 Calculated Osmolality 285 mOsm/kg (285-295) 07/22/25 19:38 Calcium 9.2 mg/dL (8.5-10.5) 07/22/25 19:38 Total Bilirubin 0.2 mg/dL (0.15-1.2) 07/22/25 19:38 AST 12 U/L (0-32) 07/22/25 19:38 ALT 7 U/L (0-33) 07/22/25 19:38 Alkaline Phosphatase 93 U/L (35-105) 07/22/25 19:38 Troponin T Baseline < 6 ng/L (0-10) 07/22/25 19:38 Troponin T 120 Minute < 6.0 ng/L (0-10) 07/22/25 21:15 Delta Troponin T 0 ABS# (0-10) 07/22/25 21:15 NT-Pro-B Natriuret Pep < 36 pg/mL (0-125) 07/22/25 19:38 Total Protein 6.5 g/dL (6.6-8.7) L 07/22/25 19:38 Albumin 4.1 g/dL (3.5-5.2) 07/22/25 19:38 Globulin 2.4 g/dL (1.3-4.6) 07/22/25 19:38 All radiology interpretation(s) finalized by discharge Discharge Plan Discharge Patient Disposition: Xfer Short-Term Hosp Clinical Impression: Angina pectoris, unstable Coronary artery disease Qualifiers: Coronary Disease-Associated Artery/Lesion type: [place] artery Condition: Stable Referrals: Lo Moss APN [Primary Care Provider, Family Practice] Print Language: Lao Coding Level of Care Code ED Residential Leasing Manager for Chg Fwd Heart Score HEART Score Components History: Moderately Suspicious EKG: Significant ST-deviation Age: 45-64 yrs Risk Factors: 1 or 2 Risk Factors Troponin: Baseline Trop <16 ng/L HEART Score RESULT HEART Score: 5
[2025-07-22] MEDS: nitroglycerin 1 gm/inch oint Pkt 1 INCH TOPICAL (19:37)
[2025-07-22] MEDS: ondansetron 2 mg/ML SDV 2 mL 4 MG IVP (19:40)
[2025-07-22] MEDS: morphine 4 mg/mL SDV 1 mL 2 MG IVP (19:42)
[2025-07-22 19:43] LABS: Hematocrit 38.7 % (36-47); Hemoglobin 12.90 g/dL (11.27-16.99); Mean Corpuscular HGB Conc 33.3 g/dL (30-55); Mean Corpuscular Hemoglobin 32.1 pg (27-33); Mean Corpuscular Volume 96.3 fl (85-98); Nucleated Red Blood Cells % 0 %; Platelet Count 405 10^3/cmm (157-399); Red Blood Count 4.02 10^6/uL (3.85-5.65); White Blood Count 7.37 10^3/uL (3.29-11.43)
[2025-07-22 20:05] LABS: Troponin(5th) Baseline < 6 ng/L (0-10)
[2025-07-22 20:08] LABS: Alanine Aminotransferase 7 U/L (0-33); Albumin Level 4.1 g/dL (3.5-5.2); Alkaline Phosphatase 93 U/L (35-105); Anion Gap 18.0 (5-19); Aspartate Amino Transferase 12 U/L (0-32); Blood Urea Nitrogen 5 mg/dL (6-20); Calcium 9.2 mg/dL (8.5-10.5); Carbon Dioxide 21 mmol/L (22-29); Chloride 104 mmol/L (98-107); Creatinine Clr Calc Pharmacy 132.5054; Globulin 2.4 g/dL (1.3-4.6); Glucose 92 mg/dL (65-115); Osmolality Calculated 285 mOsm/kg (285-295); Potassium 4.0 mmol/L (3.5-5.1); Sodium 139 mmol/L (136-145); Total Protein 6.5 g/dL (6.6-8.7)
[2025-07-22 20:13] LABS: NT Pro B Type Natriuretic Pept < 36 pg/mL (0-125)
[2025-07-22] MEDS: heparin 5,000 unit/mL INJ 1 mL IVP (21:02)
[2025-07-22] MEDS: nitroglycerin drip 50 MG/250 ML PREMIX IV (21:05)
[2025-07-22] MEDS: heparin drip 25,000 UNIT/500 ML PREMIX 13.72 UNIT IV (21:06)
[2025-07-22 21:36] LABS: Troponin 5 2HR < 6.0 ng/L (0-10); Troponin 5 2HR Delta 0 ABS# (0-10)
--- NOTE | 2025-07-22 22:24 | PC.NURSE ---
Nitro drip and Heparin drip continued upon transfer [facility].
== END 2025-07-22 22:24 | disposition short-term general hospital (02) ==
PROVIDERS: Emergency Provider Emergency Medicine; PCP Nurse Practitioner Family
DX: I25.110 Atherosclerotic heart disease of native coronary artery with unstable angina pectoris (principal); F17.210 Nicotine dependence, cigarettes, uncomplicated
CPT/HCPCS: 36415; 71045; 80053; 83880; 84484; 85025; 93005; 96374; 96375; 99285; J1644; J2270; J2405; J3490; J9999